=== PATIENT | female | born 1945 | race Caucasian/White ===

== ENCOUNTER 2019-05-04 07:07 | Inpatient (IN) | payer MEDICARE, OTHER ==
[2019-05-04] VITALS (9 sets, daily range): BP systolic 88–139; BP diastolic 44–76
[~2019-05-04] VITALS: Ht 152.4 cm; Wt 60.3 kg
[~2019-05-04 07:07] MED LIST: ASPIR 8181 M1 PO; ASPIRIN325 PO; BENAZEPRIL HCL40 MG PO; COLACE100 MG PO; HYDROCODON-ACE1 EAC7 PO; HYDROCODONE-AP1 EAC6 PO; LOVASTATIN 20 M20 MG PO; METOPROLOL SUC200 MG PO; MICROZIDE12.5 MG PO; NORVASC5 MG PO; TRAMADOL 50 MG50 MG PO; XARELTO10 MG PO
[2019-05-04 07:51] LABS: ABSOLUTE LYMPHOCYTES 1.1 thou/uL (0.8-5.3); ABSOLUTE MONOCYTES 0.6 thou/uL (0.0-1.2); ABSOLUTE NEUTROPHILS 6.5 thou/uL (1.6-8.1); BASOPHILS 0.3 %; EOSINOPHILS 0.4 %; HEMOGLOBIN 14.8 gm/dL (12.0-15.0); LYMPHOCYTES 13.5 %; MCH 30.8 pg (26.0-34.0); MCHC 33.6 g/dL (28.0-37.0); MCV 91.7 fL (80.0-100.0); MONOCYTES 7.5 %; MPV 11.1 fl. (7.2-11.1); NUCLEATED RBCS 0 /100WBC; PLATELET COUNT* 81 thou/uL (150-400); POLYS 78.3 %; RDW-CV 15.1 % (10.5-14.5); WBC 8.3 thou/uL (4.0-11.0)
[2019-05-04 08:01] LABS: ANION GAP 8 mmol/L (7-16); BUN 16 mg/dL (7-18); CALCIUM 8.8 mg/dL (8.5-10.1); CHLORIDE 102 mmol/L (98-107); CO2 30 mmol/L (21-32); CREATININE 1.1 mg/dL (0.6-1.3); GLUCOSE 103 mg/dL (70-99); POTASSIUM 3.6 mmol/L (3.5-5.1); SODIUM 140 mmol/L (136-145)
[2019-05-04 08:11] LABS: ALKALINE PHOSPHATASE 162 U/L (46-116); LIPASE 106 U/L (73-393); MAGNESIUM 1.7 mg/dL (1.8-2.4); NT-PRO BRAIN NAT PEPTIDE 785 pg/mL (<300); SGOT 113 U/L (15-37); SGPT 81 U/L (30-65); TOTAL BILIRUBIN 1.1 mg/dL (<0.1-1.0); TOTAL PROTEIN 6.8 g/dL (6.4-8.2); TROPONIN-I LEVEL <0.06 ng/mL (<0.06)
--- NOTE | 2019-05-04 10:55 | EKG ---
[place] [address] ELECTROCARDIOGRAM REPORT Name: CONSUELO ZAPIEN Room: [address] ADM IN M.R.#: [id number] Admission: 05/04/19 Attend Phys: Raffy Kahn, Discharge: Date of : 47 Report #: [id number] THIS REPORT FOR: //name// [facility] ED Test Date: 2019-05-04 Test Time: 07:12:12 Pat Name: CONSUELO ZAPIEN Department: Room: [facility] Gender: F [employer] Consultant[place] [facility] 1945 Requested By: Ruperto Joel Order Number: [id number] MD: Jake Parker Measurements Intervals [place] Rate: 84 P: 79 MD: 160 QRS: 52 QRSD: 105 T: 261 QT: 341 QTc: 404 Interpretive Statements Sinus rhythm Borderline repolarization abnormality Cannot rule out inferior infarct, old Compared to ECG 08/27/2016 09:14:01 Left bundle-branch block no longer present Electronically Signed On 05-04-2019 10:55:33 CDT by Jake Parker [email or web address] <ELECTRONICALLY SIGNED> By: Jake Parker MD, FACC 05/04/19 1055 1 1 Jake Parker MD, FAC /EPI
--- NOTE | 2019-05-04 13:02 | NUR ---
VSS, ASSUMED CARE OF PT FROM ER, ASSESSMENT PERFORMED AND CHARTED, FALL PRECAUTIONS IN PLACE AND CALL LIGHT IN REACH, PT IS A&O4 AND UP AD TYLER, PT IS ON RA AND DENIES ANY PAIN, PT IS TRACING SB/SR ON THE MONITOR, PT WILL HAVE CATH TODAY, WILL FOLLOW WITH PLAN OF CARE.
[2019-05-04 13:23] LABS: CHOLESTEROL 115 mg/dL (<200); HDL CHOLESTEROL 27 mg/dL (>40); LDL CHOLESTEROL 65 mg/dL (<100); TC:HDL 4.3 Ratio (Not establshd); TRIGLYCERIDE 118 mg/dL (<150); VLDL 24 mg/dL (<40)
[2019-05-04 13:28] LABS: SERUM ASSESSMENT Clear
--- NOTE | 2019-05-04 14:16 | NUR ---
EMOTIONAL REASSUREANCE PROVIDED WITH PERIPHERAL IV START. PATIENT VERBALIZED UNDERSTANDING AND EXPRESSED "THANK YOU" AT THE CLOSE OF INTERVENTION. ARIANA OF ADMINISTRATION PRESENT FOR SERVICE RECOVERY.
[2019-05-04 14:49] LABS: CREATININE 0.9 mg/dL (0.6-1.3); MAGNESIUM 1.8 mg/dL (1.8-2.4); POTASSIUM 3.4 mmol/L (3.5-5.1)
--- NOTE | 2019-05-04 18:57 | NUR ---
ASSUMED PT CARE AT 1500, GET REPORT FROM FIORELLA CRISTINA. PT HAD HEART CATH. R [facility] SITE C/D/I. VSS, HOURLY ROUNDING, CALL LIGHT WITHIN REACH. WILL CONTINUE TO MONITOR
[2019-05-05 04:00] VITALS: BP 103/52
[2019-05-05 04:31] LABS: ALBUMIN 2.6 g/dL (3.4-5.0); CALCIUM 8.4 mg/dL (8.5-10.1); CREATININE 0.9 mg/dL (0.6-1.3); POTASSIUM 3.4 mmol/L (3.5-5.1); TOTAL BILIRUBIN 0.9 mg/dL (<0.1-1.0); TOTAL PROTEIN 5.7 g/dL (6.4-8.2)
--- NOTE | 2019-05-05 06:44 | NUR ---
Patient progressing towards goals: vss on room air. Right groin site without hematoma, minimal bruising. dressing c/d/i. Denies chest pain and discomfort this shift. Anticipating discharge home today. Call light within reach
[2019-05-05 08:00] VITALS: BP 116/58
--- NOTE | 2019-05-05 10:50 | NUR ---
ASSUMED PT CARE AT O800, AOX4, UP AD TYLER, O2 SAT 90'S RA. TRACING SR, 1ST DEGREE ON MONITOR. DENIES PAIN. CATH SITE C/D/I. VSS, AM ASSESSMENT CHARTED. MEDS GIVEN PER MAR, HOURLY ROUNDING. WILL CONTINUE TO MONITOR.
[2019-05-05 11:07] VITALS: BP 116/58
--- NOTE | 2019-05-05 11:30 | NUR ---
ATTEMPTED TO MEET WITH PT. SHE REFUSED STATING SHE HAD ALREADY GIVEN THE INFO CM WAS ASKING TO SOMEONE ELSE. WANTED TO KNOW WHERE DR WAS AND WANTING TO GO HOME. REASSURED HER CM WOULD ASK NURSE TO CONTACT HER DR.
--- NOTE | 2019-05-05 11:53 | EKG ---
[place] [address] ELECTROCARDIOGRAM REPORT Name: CONSUELO ZAPIEN Room: [address] ADM IN M.R.#: [id number] Admission: 05/04/19 Attend Phys: Raffy Kahn, Discharge: Date of : 47 Report #: [id number] THIS REPORT FOR: //name// [facility] Test Date: 2019-05-05 Test Time: 08:18:57 Pat Name: CONSUELO ZAPIEN Department: Room: [address] Gender: F Elevator Service Technician: : 1945 Requested By: Jake Parker Order Number: [id number] MD: Ayaz Woods Measurements Intervals [place] Rate: 63 P: 49 IN: 169 QRS: 40 QRSD: 110 T: 259 QT: 436 QTc: 447 Interpretive Statements Sinus rhythm Inferoposterior infarct, recent Abnormal T, consider ischemia, anterior leads Lateral leads are also involved Compared to ECG 05/04/2019 07:12:12 T-wave abnormality now present Possible ischemia now present Myocardial infarct finding still present Electronically Signed On 05-05-2019 11:53:18 CDT by Ayaz Woods [email or web address] <ELECTRONICALLY SIGNED> By: Ayaz Woods MD, [facility] 05/05/19 1153 7 Ayaz Woods MD, [facility] /EPI
[2019-05-05 12:45] VITALS: BP 107/60
[2019-05-05 12:47] LABS: HEMATOCRIT 38.4 % (37.0-47.0); HEMOGLOBIN 12.8 gm/dL (12.0-15.0); MCH 30.7 pg (26.0-34.0); MCHC 33.3 g/dL (28.0-37.0); MPV 12.3 fl. (7.2-11.1); NUCLEATED RBCS 0 /100WBC; PLATELET COUNT* 74 thou/uL (150-400); RBC 4.17 mil/uL (4.20-5.00); RDW-CV 14.9 % (10.5-14.5); WBC 7.5 thou/uL (4.0-11.0)
[2019-05-05 13:19] LABS: ABSOLUTE LYMPHOCYTES 0.6 thou/uL (0.8-5.3); ABSOLUTE MONOCYTES 0.1 thou/uL (0.0-1.2); ABSOLUTE NEUTROPHILS 6.8 thou/uL (1.6-8.1)
[2019-05-05 13:23] LABS: ANISOCYTOSIS 1+; PLATELET ESTIMATE DECREASED; POIKILOCYTOSIS 1+
[2019-05-05 16:41] VITALS: BP 120/63
[2019-05-05 19:50] VITALS: BP 170/65
[2019-05-06] VITALS: BP 108/51
[2019-05-06 04:00] VITALS: BP 94/58
[2019-05-06 04:39] LABS: HEMATOCRIT 36.6 % (37.0-47.0); MCH 30.4 pg (26.0-34.0); MCHC 32.9 g/dL (28.0-37.0); MCV 92.4 fL (80.0-100.0); MPV 11.3 fl. (7.2-11.1); RBC 3.96 mil/uL (4.20-5.00); RDW-CV 14.9 % (10.5-14.5); WBC 12.8 thou/uL (4.0-11.0)
[2019-05-06 04:44] LABS: CALCIUM 8.2 mg/dL (8.5-10.1); CREATININE 1.1 mg/dL (0.6-1.3); MAGNESIUM 2.2 mg/dL (1.8-2.4); POTASSIUM 3.5 mmol/L (3.5-5.1)
[2019-05-06 07:20] VITALS: BP 114/58
--- NOTE | 2019-05-06 11:19 | CARD ---
[address] [address] CARDIAC CATH REPORT Name: CONSUELO ZAPIEN Room: [address] IN .R.#: [id number] Admission: 05/04/19 Attend Phys: Raffy Kahn, Discharge: Date of : 47 Report #: [id number] THIS REPORT FOR: //name// APPROVED REPORT Study performed: 05/04/2019 14:34:58 Patient Details The patient is a 73 year-old female Event Personnel Jake Parker Bonsai Culturist, Callie Kuo RN RN, Omar Lund (R) Scrub, Camelia Ulloa RTR Monitor, Fiona Malcolm RTR Scrub, Ayaz Woods Jig Fitter Procedures Performed Art Access - R femoral artery* Left Heart Cath Coronaries, Bypass Grafts [id number] LHCCORCABG DAVINA Place w/wo Plasty Single CIRC [id number] DAVINA Place w/wo Plasty Single LAD [id number] Admission/Lab Medications/Medications given during procedure Midazolam (Versed) IV 2 mg, Fentanyl IV 50 mcg, Lidocaine Subcut 14 ml, Angiomax IV 9 mg per kg, Angiomax Drip IV 21 ml per hr, Benadryl IV 50 mg, Solumedrol IV 125 mg, Midazolam (Versed) IV 1 mg, Fentanyl IV 25 mcg, Fentanyl IV 25 mcg, Effient PO 60 mg, Aspirin PO 162 mg Procedure Narrative A 6fr Ultimum Sheath sheath was inserted into the right femoral artery. Coronary angiography was performed using coronary diagnostic catheters. The right coronary system was accessed and visualized with a 6F JR4 catheter. The left coronary system was accessed and visualized with a 6F JL4 catheter. The left ventricle was accessed and visualized with a PIGTAIL catheter. The patient tolerated the procedure well and there were no complications associated with the procedure. The SVG's were accessed and visualized with a 6F JR4 catheter. Contrast injection to visualize APONTE with a 6F JR4 catheter. Intraoperative Conscious Sedation Sedation start time: 15:30 Case end Time: 16:50 Fentanyl 100 mcg Versed 3 [place] [address] CARDIAC CATH REPORT Name: CONSUELO ZAPIEN Room: [address]#: [id number] Admission: 05/04/19 Attend Phys: Raffy Kahn, Discharge: Date of : 47 Report #: [id number] Fluoro Time: 25.7 minutes Dose: DAP 299265 cGycm2 67.7 mGy Contrast Type and Amount: Visipaque 700 ml Coronary Angiography The patient's coronary anatomy is right dominant. [place] Artery Percent Stenosis A saphenous vein graft to the PDA branch of the right coronary artery is widely patent with good proximal and distal anastomoses. A saphenous vein graft to the obtuse marginal/diagonal region appears to be chronically occluded. A presumed a APONTE graft to the LAD appears to be chronically occluded at the takeoff. Diagnostic Cath Left Main Mildly plaqued left anterior descending coronary artery that bifurcates into the left descending and circumflex coronary arteries. LAD Mildly ectatic proximal vessel with a tubular 80% narrowing in the proximal to mid LAD. The distal vessel is free of significant disease. Diagonal 1 Previous significant disease. Circumflex Mildly plaqued in the proximal portion. The mid and distal vessel are free of significant disease. OM1 Renetta branch with proximal takeoff. Free of significant disease. OM2 90% narrowing proximally. Distal moderate in size and branch. Right Coronary Diffusely ectatic proximal right coronary artery that is occluded at the takeoff of an acute marginal branch. R PDA Moderate-sized vessel filled by a saphenous vein graft is diffusely plaqued without hemodynamically significant. RPLV Faintly filled by retrograde perfusion from the saphenous vein graft to the PDA. Left Ventriculography The left ventricle is normal in size with abnormal contractility. The left ventricular ejection fraction is estimated to be 45-50%. Left ventricular wall motion abnormalities are present. The basal inferior wall appears akinetic. Hemodynamics The aortic pressure is 92/57 mmHg with a mean of 71 mmHg. The left ventricular pressure is 123/2 mmHg with a mean of mmHg. The left ventricular end diastolic pressure is 14 [place] [address] CARDIAC CATH REPORT Name: CONSUELO ZAPIEN [address] [id number] Admission: 05/04/19 Attend Phys: Raffy Kahn, Discharge: Date of : 47 Report #: [id number] PCI Technique Lesion Anticoagulation was achieved with Angiomax. Patient was preloaded with Angiomax IV 9 mg per kg. Percutaneous coronary intervention was performed on the OM2. The lesion stenosis prior to intervention was 90% with ROSENDA 2 flow. A 6F XB LAD 3.5 Guide Catheter was used to engage the ostium. A IG: BMW 190cm Interventional Guidewire was used to cross the lesion. BALLOON DILATION A Balloon catheter Mini Trek RX 2.0 X 8 was inserted and inflated up to 12.00atm for 16seconds. Additional Inflation: 12.00atm for 16seconds. A 2.25/8 NC TREK balloon inserted and inflated to 15 ARIAN for 5 seconds. A 2nd inflation of 15 ARIAN for 19 seconds. STENT DEPLOYMENT A stent [place] RX Stent 2.28G94qk was inserted and inflated up to 10.00atm for 9seconds. Additional Inflation: 10.00atm for 10seconds. Final angiography reveals 0 % stenosis with ROSENDA 3 flow. PCI Technique Lesion 2 Percutaneous Coronary Intervention was performed on the proximal left anterior descending artery segment. Patient was preloaded with Angiomax IV 9 mg per kg. The lesion stenosis prior to intervention was 80% with ROSENDA 3 flow. A 6F XB LAD 3.5 Guide Catheter was used to engage the ostium. A IG: BMW 190cm Interventional Guidewire was used to cross the lesion. Balloon Dilation A Balloon catheter Trek RX 2.5 X 8 was inserted and inflated up to 18.00atm for 26seconds. Additional Inflation: 18.00atm for 13seconds. A 2.75/8 NC TREK balloon was inserted and inflated to 20 ARIAN for 17 seconds. A 3.0/8 NC TREK balloon was inserted and inflated to 16 ARIAN for 8 seconds. A 2nd inflation at 20 ARIAN for 8 seconds. Stent Deployment A stent Xience Elisha [id number] was inserted and inflated up to 12.00atm for 8seconds. Additional Inflation: 16.00atm for 11seconds. Additional Inflation: 17.00atm for 9seconds. Final angiography reveals 10 % stenosis with ROSENDA 3 flow. Conclusion [facility] [address] [place] [address] CARDIAC CATH REPORT Name: CONSUELO ZAPIEN Room: [address] IN M.R.#: [id number] Admission: 05/04/19 Attend Phys: Raffy Kahn, Discharge: Date of : 47 Report #: [id number] 1. Severe three-vessel disease as outlined above. 2. Mildly decreased left particular systolic function with wall motion abnormalities as outlined above. 3. Moderately elevated left ventricular end-diastolic pressure. 4. Patent saphenous vein graft to the right coronary artery. 5. Occluded saphenous vein graft to the obtuse/diagonal territory. 6. Occluded APONTE graft to the LAD. 7. successful PCI with de[ployment of a DAVINA in OM2 with 0% residual narrowing 8.successfu PCI with deployment of a DAVINA in the proximal LAD with 10 % resiual narrowing Recommendations Cardiac Risk Reduction Program 1. Continue aggressive risk factor modification. 2. Consider percutaneous coronary intervention to the second obtuse marginal and proximal to mid left descending coronary arteries. Medications Administered Aspirin (any) Prasugrel Diagnostic Cath Approved by: Jake Parker MD Date/Time: 05/06/2019 11:18:28 <ELECTRONICALLY SIGNED> By: Ayaz Woods MD, [facility] 05/06/19 1119 1119 1119Jobryn Woods MD, FACC /INF
--- NOTE | 2019-05-06 11:19 | CON ---
[address] [address] CONSULTATION Name: CONSUELO ZAPIEN Room: [address] IN ..#: [id number] Admission: 05/04/19 Attend Phys: Raffy Kahn, Discharge: Date of : 47 Report #: [id number] THIS REPORT FOR: //name// CC: Aleja Kahn DATE OF SERVICE: 05/05/2019 REASON FOR CONSULTATION: Thrombocytopenia and lung mass. SUBJECTIVE: A 73-year-old female who has been having nonpleuritic, nonradiating chest pain, dull, but heavy in description. The patient had a cardiac workup. EKG showed minimal ST depression and she underwent a heart catheterization. The patient received Angiomax during her procedure. Platelet count dropped from 81-74 and prior to that back in 08/2016, platelet count was 106. I reviewed her workup and today this afternoon, she had a CT scan of the chest showed large spiculated right upper lobe mass with a right pleural effusion consistent with a primary lung cancer. 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 No active leak, persistent nephrogram with a prior coronary artery. REVIEW OF SYSTEMS: All systems reviewed. It was negative including 30 pounds weight loss in the last year. MEDICATIONS: Per admission list. ALLERGIES: PENICILLIN AND ADHESIVE TAPE. PAST MEDICAL HISTORY: Coronary artery disease status post bypass, hypertension, and dyslipidemia. PAST SURGICAL HISTORY: Back surgery, CABG, hysterectomy, cholecystectomy, tonsillectomy, right hip replacement. SOCIAL HISTORY: No alcohol or drug abuse. However, she has been an active smoker for her entire life more than 50 years, she has had around 1-2 cigarettes. PHYSICAL EXAMINATION: VITAL SIGNS: Today, temperature 36.5, respirations 16, pulse 66, blood pressure is 120/63, saturations 96% on room air. GENERAL: The patient was lying in bed, she was not in acute distress. LUNGS: Clear to auscultation bilaterally. HEART: Regular rate and rhythm. S1, S2 within normal limits. ABDOMEN: Soft, nontender, nondistended, bowel [place] [address] CONSULTATION Name: CONSUELO ZAPIEN Room: [address] IN [facility]#: [id number] Admission: 05/04/19 Attend Phys: Raffy Kahn, Discharge: Date of : 47 Report #: [id number] EXTREMITIES: No edema, no cyanosis, no clubbing. LABORATORY DATA: Today, WBC is 7.5, hemoglobin 12.8 and platelets 74. Sodium is 139, potassium 3.4, creatinine 0.9, bilirubin is 0.8, AST 48, ALT is 64, alkaline phosphatase 127. IMAGING: As mentioned above. 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 However, incidental findings of CT scan of the chest showed right upper lobe mass with liver metastases. This is a challenging case because the patient just had a cardiac catheterization on and we will need to obtain a biopsy and she is going to be at high risk with her current anticoagulation. At the same time, I would like to obtain abdominal and pelvic CT scan, brain MRI for continuous evaluation. We will need to discuss with a Cardiology when biopsy is feasible by holding the anticoagulant. <ELECTRONICALLY SIGNED> By: Julian Prince MD 05/06/19 1119 1722 [id number] Prince MD /nt
[2019-05-06] MEDS ORDERED: DECADRON4 MG PO ×2 (14:36→14:37)
[2019-05-06] MEDS ORDERED: EFFIENT10 MG PO (14:38)
[2019-05-06 14:48] VITALS: BP 116/58
[2019-05-06 15:05] VITALS: BP 116/58
--- NOTE | 2019-05-08 10:17 | CON ---
[address] [address] CONSULTATION Name: CONSUELO ZAPIEN Room: [address] IN M.R.#: [id number] Admission: 05/04/19 Attend Phys: Raffy Kahn, Discharge: 05/06/19 Date of : 47 Report #: [id number] THIS REPORT FOR: //name// CC: Aleja Kahn REASON FOR CONSULTATION: Lung mass. HISTORY OF PRESENT ILLNESS: This is a 73-year-old female patient who was admitted to this facility on the above-mentioned date with chest pain and discomfort. She described it as dull and heavy sensation in the central part of her chest. At one point, she described as heartburn to me. She reported also some episodes of lightheadedness on and off. She was evaluated by Cardiology. She has a background history of coronary artery disease, status post coronary artery bypass graft in 2002. She has a background history of smoking too. There was a concern this is an anginal equivalent as she experienced similar symptoms in the past. She underwent cardiac evaluation. She reports she underwent cardiac catheterization and stent placement. She is currently on aspirin and Effient. Also, she had a platelet dropped afterwards and Oncology was consulted. Part of her workup was a CT chest that demonstrated right lung mass. Also, she had some liver lesions. Oncology was consulted who ordered an MRI. The MRI also showed possible brain mets. She told me she smokes, although she does not have oxygen at home. She does not use any inhalers. She is n.p.o. this morning for ultrasound. PAST MEDICAL HISTORY: Coronary artery disease, status post coronary artery bypass graft as mentioned above, hyperlipidemia, hypertension, lip surgery, blind in the left eye. PAST SURGICAL HISTORY: Triple bypass, back surgery, some reconstruction surgery, hysterectomy, cholecystectomy, tonsillectomy, and right hip surgery. ALLERGIES: PENICILLIN AND ADHESIVES. HOME MEDICATIONS: Aspirin, amlodipine, lovastatin, metoprolol, and hydrochlorothiazide. REVIEW OF SYSTEMS: All systems reviewed with the patient and negatives as mentioned above. PHYSICAL EXAMINATION: VITAL SIGNS: She was on room air with saturation more than 90%, blood pressure 108/51, pulse rate of 69, and temperature 36.5. GENERAL: The patient is lying in bed, awake, alert, [place] [address] CONSULTATION Name: CONSUELO ZAPIEN Emily Room: [address]#: [id number] Admission: 05/04/19 Attend Phys: Raffy Kahn, Discharge: 05/06/19 Date of : 47 Report #: [id number]. HEENT: head is normocephalic, atraumatic. Pupils are reactive to light. External ear looks healthy and normal. Nasal cavity patent passages. Oral cavity, moist mucous membranes. Mallampati of 2. NECK: Full range of movement. CHEST: Diminished air movement bilaterally, but no wheezes, no crackles. No tenderness. HEART: S1, S2. No murmur, no gallop. ABDOMEN: Benign, soft, lax, nontender, positive bowel sounds. No masses felt, no rebound, no rigidity. EXTREMITIES: Lower extremity: No edema, no calf tenderness. NEUROLOGIC: Moving 4 extremities spontaneously. No focal weakness. Cranial nerves grossly normal with an affect slightly anxious. SKIN: No rash. LABORATORY DATA: White blood count 12.8, hemoglobin 12, and platelets ____, potassium 3.5 with a sodium 142, chloride 106, creatinine 1.1. BNP 785. Her MRI of the brain reported as multiple enhancing masses in both cerebral hemispheres. CT chest demonstrated spiculated right upper lobe mass with right pleural effusion suspicious for malignancy and multiple hepatic metastases on both lower lobes. IMPRESSION: 1. Lung mass. 2. Liver lesions suspicious for metastasis. 3. Abnormal MRI of the brain with possible metastasis. 4. Coronary artery disease, status post coronary artery bypass graft. 5. Status post stent. The patient with lung mass with possible metastasis to the liver and the brain, difficult situation. She is on Effient and aspirin. The record indicated that she had recent catheterization, I am still waiting for the official reports and she is currently on Effient and aspirin. She will need a biopsy to confirm the diagnosis. Oncology on the case, likely liver biopsy will be the easiest approach; however, we are waiting for further input from Cardiology regarding holding anticoagulation. She is in no respiratory distress. I do not think she needs steroids at this point, can consider DuoNeb p.r.n. Discussed with the patient. Thank you for the consult. <ELECTRONICALLY SIGNED> By: Deedee Hong MD 05/08/19 1017 0751 [id number] Hong MD /nt
== END 2019-05-06 16:00 | disposition home or self-care (01) | DRG 246 ==
LOC: M.ERS 07:07 → M.TBA-ER 09:00 → M.2W 09:00
PROVIDERS: Emergency Medicine Emergency Medical Services; Internal Medicine Cardiovascular Disease; Registered Nurse; ADMIT Family Medicine
PROC: B211YZZ Fluoroscopy of Multiple Coronary Arteries using Other Contrast (ICD-10-PCS; principal; 2019-05-04)
PROC: B213YZZ Fluoroscopy of Multiple Coronary Artery Bypass Grafts using Other Contrast (ICD-10-PCS; principal; 2019-05-04)
PROC: 4A023N7 Measurement of Cardiac Sampling and Pressure, Left Heart, Percutaneous Approach (ICD-10-PCS; principal; 2019-05-04)
PROC: 027135Z Dilation of Coronary Artery, Two Arteries with Two Drug-eluting Intraluminal Devices, Percutaneous Approach (ICD-10-PCS; principal; 2019-05-04)
PROC: B215YZZ Fluoroscopy of Left Heart using Other Contrast (ICD-10-PCS; principal; 2019-05-04)
PROC: B218YZZ Fluoroscopy of Left Internal Mammary Bypass Graft using Other Contrast (ICD-10-PCS; principal; 2019-05-04)
DX: I25.810 Atherosclerosis of coronary artery bypass graft(s) without angina pectoris (principal); E43 Unspecified severe protein-calorie malnutrition; E78.5 Hyperlipidemia, unspecified; I10 Essential (primary) hypertension; H54.40 Blindness, one eye, unspecified eye; D69.6 Thrombocytopenia, unspecified; R91.8 Other nonspecific abnormal finding of lung field; K76.9 Liver disease, unspecified; F17.210 Nicotine dependence, cigarettes, uncomplicated; Z96.641 Presence of right artificial hip joint; Z95.1 Presence of aortocoronary bypass graft; I71.9 Aortic aneurysm of unspecified site, without rupture; Z90.49 Acquired absence of other specified parts of digestive tract; Z90.710 Acquired absence of both cervix and uterus; Z68.26 Body mass index [BMI] 26.0-26.9, adult; Z79.82 Long term (current) use of aspirin; Z79.899 Other long term (current) drug therapy; Z88.0 Allergy status to penicillin; Z88.8 Allergy status to other drugs, medicaments and biological substances; Z82.49 Family history of ischemic heart disease and other diseases of the circulatory system; Z82.5 Family history of asthma and other chronic lower respiratory diseases; Z71.6 Tobacco abuse counseling

== ENCOUNTER 2019-05-11 09:18 | Inpatient (IN) | payer MEDICARE, OTHER ==
[~2019-05-11] VITALS: Ht 152.4 cm; Wt 61.8 kg
--- NOTE | ~2019-05-11 | CON ---
[address] [address] CONSULTATION Name: CURRYCONSUELO K Room: [address] IN M.R.#: [id number] Admission: 05/11/19 Attend Phys: La Rico Discharge: Date of : 47 Report #: [id number] THIS REPORT FOR: //name// CC: Aleja Flowers DATE OF SERVICE: 05/20/2019 NEPHROLOGY CONSULTATION CONSULTING PHYSICIAN: Dr. Pennington. REASON FOR NEPHROLOGY CONSULTATION: Hypernatremia. REASON FOR ADMISSION: Altered mental status and left leg swelling. HISTORY OF PRESENT ILLNESS: This is a 73-year-old female who was admitted on 05/11 with confusion and altered mental status. She has a history of recently diagnosed lung mass in her right lung with liver metastasis as well as brain metastasis. This was discovered after she developed thrombocytopenia after cardiac stenting. The patient was diagnosed with left leg DVT during this hospital admission, and because of her liver dysfunction, she was not considered a candidate for anticoagulation and underwent IVC filter placement also yesterday. She has been very lethargic, has not been eating or drinking and her sodium has gone up from 148 yesterday morning to 159 today and hence Nephrology has been consulted. She is currently not able to give me any review of systems. She also underwent a liver biopsy yesterday. Oncology has been following her. Plan is to do a whole brain radiation as per Oncology. REVIEW OF SYSTEMS: I cannot obtain from the patient because of her mental status. ALLERGIES: PENICILLIN, ADHESIVE AND LATEX. PAST MEDICAL HISTORY: Includes history of coronary artery disease, status post cardiac stent, left leg DVT, brain metastasis, left lung spiculated mass, liver metastasis, hypertension, and hyperlipidemia. 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 HOME MEDICATIONS: Include lovastatin, dexamethasone, prasugrel, aspirin, amlodipine, hydrochlorothiazide, metoprolol, benazepril. FAMILY HISTORY: [place] [address] CONSULTATION Name: CONSUELO ZAPIEN Emily Room: [address] IN [facility]#: [id number] Admission: 05/11/19 Attend Phys: La Rico Discharge: Date of : 47 Report #: [id number] SOCIAL HISTORY: She lives at home. No history of alcohol or drug abuse, but she smokes about 5 cigarettes a day. PHYSICAL EXAMINATION: VITAL SIGNS: Blood pressure is 114/62, her respiratory rate is 18, her pulse rate is 102, her temperature is 37, and her pulse ox on 3 liters of oxygen is 95%. GENERAL: She is sleeping and she was not really arousable for me, barely arousable, would not answer questions, would just mumble. HEAD, EYES, EARS, NOSE, AND THROAT: Nice. Atraumatic, normocephalic and normal conjunctivae. Mucous membranes are dry. NECK: There is no JVD. CHEST: Bilaterally diminished breath sounds anteriorly. No crackles or wheezing. CARDIOVASCULAR: S1, S2 normal. No murmurs. ABDOMEN: Soft, nondistended, nontender and bowel sounds are diminished. EXTREMITIES: There is no edema. NEUROLOGICAL FUNCTION: She is currently quite drowsy. PSYCHIATRIC: Cannot assess right now because of her drowsiness. LABORATORY DATA: Hemoglobin is 8.3. Sodium is 159, creatinine is 1.1. Her platelet count was 41. Her potassium was 3.5 and other labs were reviewed. IMAGING: Various imaging studies were reviewed. ASSESSMENT: 1. Hypernatremia because of intravascular volume depletion. 2. Left lower extremity deep venous thrombosis, status post inferior vena cava filter, 05/19/2019. 3. Right upper lobe spiculated lung mass with brain mets and liver mets and status post liver biopsy, which was done on 05/19/2019. 4. Transaminitis, which is slowly getting better. Primary team and Oncology is managing that. 5. Thrombocytopenia. She is getting intermittent platelet transfusions as per Oncology. 6. Altered mental status, currently due to her brain mets and also hypernatremia at this point. 7. Urinary retention. She has a Flowers catheter and has been having good urine output. 8. Constipation. PLAN: Agree with increasing D5 water to 100 mL an hour, we will check her sodium every 5 hours at least 2 times today to make sure it is coming down and goal sodium reduction to be around 150 [place] [address] CONSULTATION Name: CONSUELO ZAPIEN Emily Room: [address] IN [facility]#: [id number] Admission: 05/11/19 Attend Phys: Ventura F. Sudholt, D Discharge: Date of : 47 Report #: [id number] This was discussed with the patient's nurse. Avoid nephrotoxic agents. Thank you for this consultation. We will continue to follow with you. By: [id number] Middleton MD /zen
[~2019-05-11 09:18] MED LIST changes: +DECADRON4 MG PO; +EFFIENT10 MG PO
[2019-05-11 09:19] VITALS: BP 132/70
[2019-05-11 10:14] LABS: ABSOLUTE BASOPHILS 0.1 thou/uL (0.0-0.2); ABSOLUTE LYMPHOCYTES 2.3 thou/uL (0.8-5.3); ABSOLUTE MONOCYTES 1.7 thou/uL (0.0-1.2); ABSOLUTE NEUTROPHILS 14.3 thou/uL (1.6-8.1); BASOPHILS 0.6 %; HEMATOCRIT 43.6 % (37.0-47.0); HEMOGLOBIN 14.3 gm/dL (12.0-15.0); LYMPHOCYTES 12.3 %; MCH 31.3 pg (26.0-34.0); MCHC 32.8 g/dL (28.0-37.0); MCV 95.4 fL (80.0-100.0); MONOCYTES 9.2 %; MPV 11.6 fl. (7.2-11.1); NUCLEATED RBCS 0 /100WBC; PLATELET COUNT* 62 thou/uL (150-400); POLYS 77.9 %; RBC 4.57 mil/uL (4.20-5.00); RDW-CV 17.5 % (10.5-14.5); WBC 18.4 thou/uL (4.0-11.0)
[2019-05-11 10:14] LABS: URINE BILIRUBIN NEGATIVE (Negative); URINE BLOOD NEGATIVE (Negative); URINE CLARITY CLEAR; URINE COLOR YELLOW; URINE GLUCOSE-RANDOM NEGATIVE (Negative); URINE KETONES NEGATIVE (Negative); URINE LEUKOCYTES-REFLEX 1+ (Negative); URINE NITRITE-REFLEX NEGATIVE (Negative); URINE PROTEIN NEGATIVE (Negative); URINE SPECIFIC GRAVITY <= 1.005 (1.005-1.030)
[2019-05-11 10:19] LABS: CALCIUM 9.2 mg/dL (8.5-10.1); CREATININE 1.3 mg/dL (0.6-1.3)
[2019-05-11 10:23] LABS: BACTERIA-REFLEX 1-9 Few /HPF (None Seen); CASTS None Seen /LPF (None Seen); CRYSTALS None Seen /LPF (None Seen); MUCUS 0-3 Light strn/LPF (None Seen); SQUAMOUS 0-3 Few /LPF (0-3); URINE RBC 0-2 Rare /HPF (0-2); URINE WBC-REFLEX 6-15 Few /HPF (0-5)
[2019-05-11 10:28] LABS: INR 1.5; PROTIME 15.5 Seconds (9.20-11.50)
[2019-05-11 10:30] LABS: ALBUMIN 3.1 g/dL (3.4-5.0); TOTAL BILIRUBIN 2.1 mg/dL (<0.1-1.0); TOTAL PROTEIN 6.2 g/dL (6.4-8.2); TROPONIN-I LEVEL 0.28 ng/mL (<0.06)
[2019-05-11 11:54] VITALS: BP 121/70
--- NOTE | 2019-05-11 13:00 | NUR ---
INITAL ASSESSMENT COMPLETED CHARTED. VSS. PT IS ALERT & ORIENTED X2-3 WITH SOME FORGETFULNESS. PT DENIES PAIN, CP, SOA, N/V/D. PT AND FAMILY ORIENTED TO UNIT AND ROOM. HOURLY ROUNDING AND FALL PRECAUTIONS IN PLACE. CLWR.
[2019-05-11] MEDS ORDERED: BENAZEPRIL HCL40 MG PO (13:36)
[2019-05-11] MEDS ORDERED: FISH OIL 1,001000 M2 PO (13:37)
--- NOTE | 2019-05-11 15:00 | EKG ---
[place] [address] ELECTROCARDIOGRAM REPORT Name: CONSUELO ZAPIEN Room: [address] ADM IN .R.#: [id number] Admission: 05/11/19 Attend Phys: La Rico Discharge: Date of : 47 Report #: [id number] THIS REPORT FOR: //name// [facility] ED Test Date: 2019-05-11 Test Time: 09:37:11 Pat Name: CONSUELO ZAPIEN Department: Room: [facility] Gender: F Final Inspector Shuttle: DEVON : 1945 Requested By: Calvin Terry Order Number: [id number] MD: Angel Vickers Measurements Intervals [place] Rate: 80 P: 74 SD: 148 QRS: 45 QRSD: 102 T: 249 QT: 341 QTc: 394 Interpretive Statements Sinus rhythm Probable left atrial enlargement Nonspecific repol abnormality, diffuse leads Compared to ECG 05/05/2019 08:18:57 no change Electronically Signed On 05-11-2019 15:00:17 CDT by Angel Vickers [email or web address] <ELECTRONICALLY SIGNED> By: Angel Vickers MD, [facility] 05/11/19 1500 0937 0937 Angel Vickers MD, [facility] /EPI
[2019-05-11 16:00] VITALS: BP 112/69
[2019-05-11 20:00] VITALS: BP 104/66
[2019-05-12] VITALS (7 sets, daily range): BP systolic 113–133; BP diastolic 55–72
--- NOTE | 2019-05-12 03:31 | NUR ---
ASSUMED PT CARE AT 1930. ASSESSMENT COMPLETED CHARTED. ABLE TO MAKE NEEDS KNOWN. UP MULTIPLE TIMES DURING THE NIGHT TO USE BSC. NO C/O PAIN OR DISCOMFORT. STATED SHE WAS NAUSEOUS AT BEGINNING OF SHIFT THEN THAT WENT AWAY. ALSO STATED SHE DIDNT FEEL GOOD BUT COULDNT PINPOINT WHY. PT RESTING IN BED AT THIS TIME. WILL CONTINUE TO MONITOR.
--- NOTE | 2019-05-12 09:00 | NUR ---
INITAL ASSESSMENT COMPLETED CHARTED. VSS. IVF INFUSING ORDERED. TRACING SR WITH 1ST DEGREE BLOCK/ AFIB AT TIMES. PT DENIES PAIN BUT STATES SHE "JUST DOESNT FEEL GOOD". PT HAS POOR APPETITE THIS MORNING. HOURLY ROUNDING AND FALL PRECAUTIONS IN PLACE FOR PT SAFETY. FAMILY AT BEDSIDE. CLWR.
--- NOTE | 2019-05-12 13:42 | NUR ---
SW called pt mlr Nena and completed initial assessment, introduce self, and SW role. Pt has AMS and cognitive challenges. Pt lives at home with , son and grandchildren. Pt is DPOA and pt dtr Nena is alternate agent. Pt family is very supportive. Pt has walker and hx of [facility] a few years ago. SW to continue to follow to assist with safe dc planning.
[2019-05-12 14:20] LABS: MCH 32.4 pg (26.0-34.0); MCHC 33.8 g/dL (28.0-37.0); NUCLEATED RBCS 0 /100WBC; RBC 3.54 mil/uL (4.20-5.00); RDW-CV 17.7 % (10.5-14.5); WBC 9.5 thou/uL (4.0-11.0)
[2019-05-12 14:24] LABS: PLATELET COUNT* 36 thou/uL (150-400)
[2019-05-12 14:31] LABS: HEMOGLOBIN 11.5 gm/dL (12.0-15.0)
[2019-05-12 14:52] LABS: ALBUMIN 2.3 g/dL (3.4-5.0); CREATININE 1.1 mg/dL (0.6-1.3); TOTAL BILIRUBIN 1.6 mg/dL (<0.1-1.0)
[2019-05-12 15:08] LABS: ABSOLUTE LYMPHOCYTES 0.9 thou/uL (0.8-5.3); ABSOLUTE MONOCYTES 0.5 thou/uL (0.0-1.2); ABSOLUTE NEUTROPHILS 8.2 thou/uL (1.6-8.1); PLATELET ESTIMATE DECREASED
[2019-05-12 15:09] LABS: ANISOCYTOSIS 1+
[2019-05-12 15:10] LABS: POLYCHROMASIA 1+
[2019-05-12 21:32] LABS: HEMATOCRIT 30.6 % (37.0-47.0); HEMOGLOBIN 10.2 gm/dL (12.0-15.0); MCHC 33.2 g/dL (28.0-37.0); MCV 96.4 fL (80.0-100.0); MPV 9.9 fl. (7.2-11.1); RBC 3.18 mil/uL (4.20-5.00); RDW-CV 18.5 % (10.5-14.5); WBC 11.2 thou/uL (4.0-11.0)
[2019-05-13] VITALS: BP 116/56
[2019-05-13 04:00] VITALS: BP 138/63
[2019-05-13 07:50] VITALS: BP 137/81
[2019-05-13 11:55] VITALS: BP 143/75
--- NOTE | 2019-05-13 15:30 | NUR ---
ASSESSMENT COMPLETE. PT ALERT AND ORIENTED X4. PT EATING MORE TODAY THAN PREVIOUS DAYS PER PATIENT AND FAMILY. PT DENIES PAIN. PT HAS SCHEDULED ZOFRAN FOR NAUSEA. PT HAS AGRASTAT INFUSING. BRUISING NOTED. PT TURNS SELF IN BED. PT IS UP ONE ASSIST TO BSC. PT IS UP WEAK AND UNSTEADY, BED ALARM IN PLACE. SEE ASSESSMENT AND VITALS FOR OTHER DETAILS. CALL LIGHT WITHIN REACH. WILL CONTINUE PLAN OF CARE
[2019-05-13 16:48] VITALS: BP 110/65
[2019-05-13 20:00] VITALS: BP 114/53
[2019-05-14] VITALS: BP 119/53
[2019-05-14 04:00] VITALS: BP 112/57
--- NOTE | 2019-05-14 05:17 | NUR ---
ASSUMED PT CARE AT 1930. ASSESSMENT COMPLETED CHARTED. ABLE TO MAKE NEEDS KNOWN. UP TO BSC MULTIPLE TIMES DURING THE NIGHT WITH SBA. VSS. NO C/O PAIN OR DISCOMFORT. C/O NAUSEA AT TIMES AND GAVE SCHEDULED ZOFRAN. AGGRASTAT STILL INFUSING IN LEFT WRIST. PT RESTING IN BED AT THIS TIME. CALL LIGHT WITHIN REACH AND FALL PRECAUTIONS IN PLACE. WILL CONTINUE TO MONITIOR.
[2019-05-14 05:28] LABS: HEMATOCRIT 32.9 % (37.0-47.0); HEMOGLOBIN 10.7 gm/dL (12.0-15.0); MCH 31.7 pg (26.0-34.0); MCHC 32.7 g/dL (28.0-37.0); MPV 10.7 fl. (7.2-11.1); RBC 3.39 mil/uL (4.20-5.00); RDW-CV 19.3 % (10.5-14.5); WBC 15.8 thou/uL (4.0-11.0)
[2019-05-14 05:45] LABS: ALBUMIN 2.3 g/dL (3.4-5.0); CALCIUM 8.4 mg/dL (8.5-10.1); CREATININE 1.1 mg/dL (0.6-1.3); TOTAL BILIRUBIN 1.5 mg/dL (<0.1-1.0); TOTAL PROTEIN 5.1 g/dL (6.4-8.2)
[2019-05-14 07:22] VITALS: BP 99/56
[2019-05-14 12:00] VITALS: BP 114/48
[2019-05-14 16:00] VITALS: BP 112/63
--- NOTE | 2019-05-14 18:16 | NUR ---
ASSESSMENT COMPLETE. PT NAUSEATED MOST OF THE DAY. SCOPE PATCH STARTED, BEHIND RIGHT EAR. PT REPORTS IT HAS NOT HELPED TODAY. PT EATING ABOUT 15% OF MEALS. SPOKE WITH ONCOLOGY THIS EVENING AND HE REPORTED HE WILL DISCUSS POSSIBLY STARTING SOMETHING TO HELP WITH APPETITE TOMORROW. FAMILY AT BEDSIDE MOST OF THE DAY. PT IS CHAIR FOR MEALS. PT UP WITH ONE ASSIST TO CHAIR AND BSC. AGRASTAT INFUSING. PT TURNS SELF IN BED. PT IS ON ROOM AIR, VSS. PT IS SR WITH PVC'S. SEE ASSESSMENT AND VITALS FOR OTHER DETAILS. CALL LIGHT WITHIN REACH, WILL CONTINUE PLAN OF CARE
[2019-05-14 20:00] VITALS: BP 110/56
[2019-05-15] VITALS: BP 94/46
[2019-05-15 04:00] VITALS: BP 98/79
[2019-05-15 05:22] LABS: HEMATOCRIT 33.4 % (37.0-47.0); HEMOGLOBIN 10.8 gm/dL (12.0-15.0); MCH 32.1 pg (26.0-34.0); MCHC 32.4 g/dL (28.0-37.0); MCV 99.2 fL (80.0-100.0); MPV 10.9 fl. (7.2-11.1); RBC 3.36 mil/uL (4.20-5.00); RDW-CV 21.3 % (10.5-14.5); WBC 20.3 thou/uL (4.0-11.0)
[2019-05-15 05:36] LABS: ALBUMIN 2.3 g/dL (3.4-5.0); CALCIUM 8.8 mg/dL (8.5-10.1); CREATININE 1.2 mg/dL (0.6-1.3); MAGNESIUM 2.1 mg/dL (1.8-2.4); POTASSIUM 4.3 mmol/L (3.5-5.1); TOTAL BILIRUBIN 2.1 mg/dL (<0.1-1.0); TOTAL PROTEIN 5.1 g/dL (6.4-8.2)
--- NOTE | 2019-05-15 05:37 | NUR ---
ASSUMED PT CARE AT 1930. ASSESSMENT COMPLETED CHARTED. ABLE TO MAKE NEEDS KNOWN. UP WITH SBA TO BSC. NO C/O PAIN OR DISCOMFORT. STILL HAS SOME NAUSEA AND REFUSED A COUPLE DOSES OF ANTI-NAUSEA MEDICATION. VSS. IV FLUIDS RUNNING PER EMAR. CALL LIGHT WITHIN REACH AND FALL PRECAUTIONS IN PLACE. WILL CONTINUE TO MONITOR.
--- NOTE | 2019-05-15 09:11 | CON ---
[address] [address] CONSULTATION Name: CONSUELO ZAPIEN Room: [address] IN .R.#: [id number] Admission: 05/11/19 Attend Phys: La Rico Discharge: Date of : 47 Report #: [id number] THIS REPORT FOR: //name// CC: Aleja Flowers DATE OF SERVICE: 05/12/2019 INPATIENT CONSULTATION DIAGNOSES: Brain, liver and lung metastases; thrombocytopenia. SUBJECTIVE: A 73-year-old female who had cardiac stenting recently with a stent placed, was found to have lung mass with liver metastases and brain metastases. She was seen at the clinic for CT simulation for brain metastases, was readmitted to the hospital yesterday and venous Doppler showed DVT of the left distal femoral vein, popliteal, posterior tibial vein and peroneal veins. The patient was started on a full dose anticoagulation along with Aggrastat. Effient was put on hold, plan for biopsy on Wednesday. I discussed these findings with the patient, also the patient went through AFib overnight. REVIEW OF SYSTEMS: All systems were reviewed. It was negative except the above. All questions have been answered. PAST MEDICAL HISTORY: Coronary artery disease, status post stent, left leg DVT, brain metastases, hypertension and dyslipidemia. MEDICATIONS: Per admission list. ALLERGIES: PENICILLIN AND ADHESIVE TAPE. PAST SURGICAL HISTORY: Total hip replacement, hysterectomy, cholecystectomy and tonsillectomy. SOCIAL HISTORY: The patient has been a smoker for most of her life; however, she reported just less than 5 cigarettes a day. No alcohol or drug abuse. PHYSICAL EXAMINATION: VITAL SIGNS: Her vital signs today, temperature is 36.7, pulse 73, respirations 19, blood pressure is 121/55, SpO2 was 99% on room air. GENERAL: The patient was lying in bed. She was not in acute distress. LUNGS: Decreased breathing sounds bilaterally. HEART: Irregular irregularity. S1, S2 within normal limits. ABDOMEN: The patient had generalized tenderness. EXTREMITIES: +1 edema bilaterally. The patient had tenderness in [place] [address] CONSULTATION Name: CONSUELO ZAPIEN Room: [address] IN [facility]#: [id number] Admission: 05/11/19 Attend Phys: La Rico Discharge: Date of : 47 Report #: [id number] LABORATORY DATA: Today, WBC 9.5, hemoglobin 11.5, platelets are 36. Creatinine is 1.1, total bilirubin is 1.6, AST is 204, alkaline phosphatase is 209. IMAGING: As mentioned above. ASSESSMENT AND PLAN: A 73-year-old female, was diagnosed with lung mass with liver and lung metastases along with recent stent placement in terms of her cancer care. RECOMMENDATIONS: 1. The patient will be bridged with Aggrastat. Effient will be put on hold. Plan for biopsy next Wednesday. Along with that I would like to recommend to obtain a port placement. 2. Brain metastases. The patient had a CT simulation of the brain. She will start whole brain radiation as soon as possible once she is discharged from the hospital. 3. Thrombocytopenia. The patient had mild thrombocytopenia in her prior admission, felt to be due to Effient; however, yesterday it was 62, today dropped to 36 along with her hemoglobin and WBC count, could be related to dilutional effect. However, with current anticoagulation and antiplatelet treatment, I would like to keep her platelet count above 50. We will transfuse her platelet count to minimize the amount of bleeding, especially with her liver and brain metastases. In general, this is a complicated condition and per the discussion with the patient previously, she would like to proceed with all possible treatment. We will monitor the patient closely during hospitalization and I will monitor also her clinical condition during hospitalization. <ELECTRONICALLY SIGNED> By: Julian Prince MD 05/15/19 0911 [id number] Prince MD /nt
[2019-05-15 12:54] VITALS: BP 98/45
--- NOTE | 2019-05-15 14:47 | NUR ---
ASSESSMENT COMPLETE. PT WEAK AND NAUSEATED MOST OF THE DAY. PT ENCOURAGED TO BE IN CHAIR FOR MEALS. PT TOLERATING ENSURE CLEAR. NEW IV STARTED IN LEFT FA WITH NS INFUSING. AGGRASTAT INFUSING IN LEFT HAND. PLATELETS 66 TODAY, ORDER TO TRANSFUSE LOWER THAN 50. DIG LEVEL WNL TODAY. SOFT BP, PROVIDER AWARE. SR ON TELE MONITOR. ULTRASOUND OF RIGHT ARM AND RIGHT LEG COMPLETED THIS AFTERNOON, SEE RESULTS. SEE ASSESSMENT AND VITALS FOR OTHER DETAILS. CALL LIGHT WITHIN REACH, WILL CONTINUE PLAN OF CARE
[2019-05-15 16:08] VITALS: BP 115/68
[2019-05-15 20:00] VITALS: BP 132/77
[2019-05-16 00:23] VITALS: BP 96/39
--- NOTE | 2019-05-16 03:41 | NUR ---
PT NAUSIATED AT TIMES WITHOUT EMESIS. TELEMETRY SHOWS SR PVC. ON RA. AGGRATAT AT 7.5MLS/HR. NS AT 100MLS/HR. DENIES PAIN.
[2019-05-16 04:30] VITALS: BP 129/60
[2019-05-16 05:18] LABS: HEMATOCRIT 31.4 % (37.0-47.0); HEMOGLOBIN 10.2 gm/dL (12.0-15.0); MCH 32.4 pg (26.0-34.0); MCHC 32.5 g/dL (28.0-37.0); MCV 99.9 fL (80.0-100.0); MPV 10.8 fl. (7.2-11.1); RBC 3.14 mil/uL (4.20-5.00)
[2019-05-16 05:36] LABS: ALBUMIN 2.3 g/dL (3.4-5.0); CALCIUM 8.2 mg/dL (8.5-10.1); CREATININE 1.2 mg/dL (0.6-1.3); MAGNESIUM 1.9 mg/dL (1.8-2.4); TOTAL BILIRUBIN 2.6 mg/dL (<0.1-1.0); TOTAL PROTEIN 4.8 g/dL (6.4-8.2)
[2019-05-16 07:05] VITALS: BP 99/50
--- NOTE | 2019-05-16 07:28 | NUR ---
CRITICAL PLATLETS 2500. RESULTS CALLED TO DR FREEMAN. PLATLETS ORDERED. LAB T&S. WAITING FOR PLATLETS.
[2019-05-16 09:27] VITALS: BP 114/58; BP 133/62
[2019-05-16 11:01] LABS: HEMOGLOBIN 8.7 gm/dL (12.0-15.0); MCHC 32.1 g/dL (28.0-37.0); MCV 102.7 fL (80.0-100.0); NUCLEATED RBCS 0 /100WBC; RBC 2.63 mil/uL (4.20-5.00); RDW-CV 22.7 % (10.5-14.5); WBC 17.8 thou/uL (4.0-11.0)
[2019-05-16 11:07] LABS: PLATELET COUNT* 99 thou/uL (150-400)
[2019-05-16 11:51] LABS: ABSOLUTE MONOCYTES 0.4 thou/uL (0.0-1.2); ABSOLUTE NEUTROPHILS 15.5 thou/uL (1.6-8.1); PLATELET ESTIMATE DECREASED
[2019-05-16 11:52] LABS: ANISOCYTOSIS 2+; HYPOCHROMASIA Occasional; MACROCYTES 2+; POIKILOCYTOSIS 1+; POLYCHROMASIA 1+
[2019-05-16 12:19] VITALS: BP 109/46
[2019-05-16 15:08] LABS: HEMATOCRIT 26.9 % (37.0-47.0); HEMOGLOBIN 8.9 gm/dL (12.0-15.0); MCV 100.1 fL (80.0-100.0); RBC 2.69 mil/uL (4.20-5.00); RDW-CV 21.8 % (10.5-14.5); WBC 18.6 thou/uL (4.0-11.0)
[2019-05-16 16:42] VITALS: BP 100/56
[2019-05-17] VITALS (7 sets, daily range): BP systolic 101–122; BP diastolic 43–64
[2019-05-17 04:51] LABS: HEMATOCRIT 28.9 % (37.0-47.0); HEMOGLOBIN 9.4 gm/dL (12.0-15.0); MCH 32.9 pg (26.0-34.0); MCHC 32.4 g/dL (28.0-37.0); MCV 101.6 fL (80.0-100.0); MPV 9.7 fl. (7.2-11.1); RBC 2.85 mil/uL (4.20-5.00); RDW-CV 23.5 % (10.5-14.5)
[2019-05-17 04:56] LABS: APTT 27.5 Seconds (25.0-31.3); INR 1.9
[2019-05-17 06:22] LABS: CALCIUM 8.4 mg/dL (8.5-10.1); MAGNESIUM 1.9 mg/dL (1.8-2.4); POTASSIUM 4.7 mmol/L (3.5-5.1)
--- NOTE | 2019-05-17 09:30 | NUR ---
INITAL ASSESSMENT COMPLETED CHARTED. VSS. PT TRACING SR WITH PVC'S ON MONITOR. PT TRU PAIN, CP, SOA. PT DOES C/O CONSTANT NAUSEA DESPITE SCHEDULED ZOFRAN AND SCOPE PATCH. POOR APPETITE. HOURLY ROUNDING AND FALL PRECAUTIONS IN PLACE FOR PT SAFETY. CLWR.
--- NOTE | 2019-05-17 15:15 | NUR ---
Pt spoke with Pt and in room, plan is for Pt to dc to home, once medically stable with HH, Pt/ do not want skilled. Following.
--- NOTE | 2019-05-17 18:33 | NUR ---
PT PARTIALLY PROGRESSING TOWARDS GOALS. PT DID PARTICIPATE IN PT TODAY. CONTINUES WITH CONSTANT NAUSEA. WILL CONTINUE PLAN OF CARE.
[2019-05-18] VITALS (8 sets, daily range): BP systolic 99–121; BP diastolic 40–89
[2019-05-18 04:29] LABS: HEMATOCRIT 28.9 % (37.0-47.0); HEMOGLOBIN 9.4 gm/dL (12.0-15.0); MCH 33.4 pg (26.0-34.0); MCHC 32.4 g/dL (28.0-37.0); MCV 103.1 fL (80.0-100.0); MPV 10.4 fl. (7.2-11.1); RBC 2.81 mil/uL (4.20-5.00); RDW-CV 25.2 % (10.5-14.5); WBC 16.6 thou/uL (4.0-11.0)
[2019-05-18 05:23] LABS: ALBUMIN 2.2 g/dL (3.4-5.0); CREATININE 1.1 mg/dL (0.6-1.3); POTASSIUM 4.2 mmol/L (3.5-5.1); TOTAL BILIRUBIN 2.8 mg/dL (<0.1-1.0); TOTAL PROTEIN 4.7 g/dL (6.4-8.2)
--- NOTE | 2019-05-18 07:57 | NUR ---
PT IS ABLE TO COMMUNICATE HER NEEDS TO STAFF WITH MINOR DIFFICULTY; SHE IS FORGETFUL AT TIMES. SHE HAS DENIED THE NEED FOR PAIN MEDICATION UP TO THIS TIME.
[2019-05-18 11:49] LABS: PROTIME 20.4 Seconds (9.20-11.50)
[2019-05-18 18:12] LABS: HEMATOCRIT 25.4 % (37.0-47.0); HEMOGLOBIN 8.1 gm/dL (12.0-15.0); MCH 33.2 pg (26.0-34.0); MCHC 31.9 g/dL (28.0-37.0); MCV 104.1 fL (80.0-100.0); MPV 10.5 fl. (7.2-11.1); RBC 2.44 mil/uL (4.20-5.00); WBC 16.2 thou/uL (4.0-11.0)
[2019-05-19] VITALS (7 sets, daily range): BP systolic 104–139; BP diastolic 52–76
[2019-05-19 05:38] LABS: HEMATOCRIT 29.2 % (37.0-47.0); HEMOGLOBIN 9.3 gm/dL (12.0-15.0); MCH 33.6 pg (26.0-34.0); MCHC 31.9 g/dL (28.0-37.0); MCV 105.2 fL (80.0-100.0); RBC 2.77 mil/uL (4.20-5.00); RDW-CV 26.6 % (10.5-14.5); WBC 14.1 thou/uL (4.0-11.0)
[2019-05-19 05:50] LABS: INR 1.7; PROTIME 17.3 Seconds (9.20-11.50)
[2019-05-19 06:02] LABS: ALBUMIN 2.5 g/dL (3.4-5.0); CALCIUM 8.2 mg/dL (8.5-10.1); CREATININE 1.2 mg/dL (0.6-1.3); TOTAL BILIRUBIN 3.2 mg/dL (<0.1-1.0); TOTAL PROTEIN 5.2 g/dL (6.4-8.2)
--- NOTE | 2019-05-19 08:19 | NUR ---
PT IS ABLE TO COMMUNICATE HER NEEDS TO STAFF WITH DIFFICULTY; SHE IS DROWSY, WITHDRAWN, AND CONFUSED (MD IS AWARE). SHE HAS DENIED THE NEED FOR PAIN MEDICATION UP TO THIS TIME. SHE HAS BEEN RESTLESS FOR MOST OF THE NIGHT. FFP UNITS STARTED THIS MORNING PER MD ORDER; TOLERATED WELL UP TO THIS TIME. SHE IS TENTATIVELY SCHEDULED TO HAVE LUNG/LIVER BIOPSY AND A PORT-A-CATH PLACEMENT PROCEDURES LATER THIS MORNING PENDING A FAVORABLE INR LAB RESULT. SHE HAS BEEN NPO SINCE MIDNIGHT FOR THE ABOVE MENTIONED PROCEDURES.
--- NOTE | 2019-05-19 11:15 | NUR ---
ASSUMED PT CARE AT 0730, PT LETHARGIC, AGITATED. O2 SAT 90'S 3L NC. TRACING SR ON TELE. PT RECEIVED 2 BAGS OF FRESH FROZEN PLASMA. VS MONITORED. PT NPO. PT FOR BIOPSY. AM ASSESSMENT CHARTED, HOURLY ROUNDING, CALL LIGHT WITHIN REACH, WILL CONTINUE TO MONITOR.
--- NOTE | 2019-05-19 12:10 | NUR ---
Patient guarding abdomen and upon palpation it is painful to touch and firm. patient's family asked why her abdomen so distended. order received for placement of cain catheter. Latex free cain catheter placed in IR suite [facility]. 1700 judie urine drained. patient abdomen soft and patient much more comfortable.
[2019-05-19 14:54] LABS: INR 1.5; PROTIME 15.5 Seconds (9.20-11.50)
--- NOTE | 2019-05-19 17:45 | NUR ---
ASSUMED CARE AFTER REPORT FROM JONNIE LAWSON. IN AGREEMENT WITH DOCUMENTED ASSESSMENT. VISITORS AT BEDSIDE. PATIENT RESTING. CALL LIGHT IN REACH. HOURLY ROUNDING FOR SAFETY AND PATIENT NEEDS.
[2019-05-19 21:01] LABS: POTASSIUM 3.6 mmol/L (3.5-5.1)
[2019-05-20] VITALS (7 sets, daily range): BP systolic 114–143; BP diastolic 61–77
[2019-05-20 04:34] LABS: HEMATOCRIT 25.7 % (37.0-47.0); HEMOGLOBIN 8.3 gm/dL (12.0-15.0); MCH 34.4 pg (26.0-34.0); MCHC 32.4 g/dL (28.0-37.0); MPV 9.9 fl. (7.2-11.1); RBC 2.43 mil/uL (4.20-5.00); RDW-CV 26.5 % (10.5-14.5); WBC 9.7 thou/uL (4.0-11.0)
[2019-05-20 04:48] LABS: ALBUMIN 2.2 g/dL (3.4-5.0); CALCIUM 8.4 mg/dL (8.5-10.1); CREATININE 1.1 mg/dL (0.6-1.3); MAGNESIUM 2.1 mg/dL (1.8-2.4); POTASSIUM 3.5 mmol/L (3.5-5.1); TOTAL PROTEIN 4.8 g/dL (6.4-8.2)
--- NOTE | 2019-05-20 07:02 | NUR ---
PT HS RESTED THROUGHOUT NIGHT MAINTAING PAIN GOAL AND SSAFETY.AND HAS REMAINED LETHARGIC. PT HAS HAD NO CO PAIN. PAC TO RIGHT SC LA BLOOD AND FLUSHED GOOD. PT PLATELET LAB THIS AM IS 41. CRITICAL LAB CALLED TO PHYSICIAN. CALL LIGHT WITHINREACH
[2019-05-20 10:10] LABS: HEMATOCRIT 27.4 % (37.0-47.0); HEMOGLOBIN 8.8 gm/dL (12.0-15.0); MCH 34.1 pg (26.0-34.0); MCHC 32.2 g/dL (28.0-37.0); MCV 105.8 fL (80.0-100.0); MPV 11.2 fl. (7.2-11.1); RBC 2.59 mil/uL (4.20-5.00); RDW-CV 26.4 % (10.5-14.5); WBC 10.2 thou/uL (4.0-11.0)
[2019-05-20 10:17] LABS: CALCIUM 8.6 mg/dL (8.5-10.1); CREATININE 1.2 mg/dL (0.6-1.3); POTASSIUM 3.5 mmol/L (3.5-5.1)
--- NOTE | 2019-05-20 20:09 | NUR ---
I ASSUMED CARE OF THE PATIENT AT 0700. SHE IS RESPONSIVE AND MUMBLES, BUT IS NOT ALERT OR ORIENTED. BED IS IN THE LOW LOCKED POSITION AND CALL LIGHT IS IN REACH. HOURLY ROUNDING IS COMPLETED AND PATIENT NEEDS ARE MET. PAIN IS DENIED. SHE IS TURNED EVERY 2 HOURS AND ORAL CARE IS COMPLETED. IS AT THE BEDSIDE. D5 IS INFUSING AND SODIUM GOAL IS 150 IN THE AM. WILL CONTINUE TO MONITOR. SAGE IS WORKING D/D. CRITICAL LOW PLATLET COUNT IS GIVEN TO ONCOLOGY. SHE IS VERY LETHARGIC AND HARD TO AROUSE. PORT IS USED AND DRAWS/FLUSHES NICELY.
[2019-05-21] VITALS: BP 109/59
[2019-05-21 04:00] VITALS: BP 120/78
[2019-05-21 05:02] LABS: HEMATOCRIT 27.4 % (37.0-47.0); HEMOGLOBIN 8.5 gm/dL (12.0-15.0); MCH 33.3 pg (26.0-34.0); MCHC 31.1 g/dL (28.0-37.0); MCV 107.1 fL (80.0-100.0); MPV 10.6 fl. (7.2-11.1); RBC 2.56 mil/uL (4.20-5.00); RDW-CV 26.7 % (10.5-14.5); WBC 15.6 thou/uL (4.0-11.0)
[2019-05-21 05:42] LABS: ALBUMIN 2.2 g/dL (3.4-5.0); CALCIUM 8.5 mg/dL (8.5-10.1); CREATININE 1.2 mg/dL (0.6-1.3); MAGNESIUM 2.1 mg/dL (1.8-2.4); POTASSIUM 3.2 mmol/L (3.5-5.1); TOTAL BILIRUBIN 3.4 mg/dL (<0.1-1.0); TOTAL PROTEIN 4.6 g/dL (6.4-8.2)
--- NOTE | 2019-05-21 06:53 | NUR ---
ASSUMED PT CARE AT 1930. ASSESSMENT COMPLETED CHARTED. UNABLE TO MAKE NEEDS KNOWN. Q2TURN COMPLETED CHARTED. CAZARES DRAINING DARK YELLOW URINE. NO APPARENT PAIN OR DISCOMFORT. VERY LATHARGIC, UNABLE TO UNSTAND MOST WORDS SHE SAYS. WILL CONTINUE TO MONITOR.
[2019-05-21 08:00] VITALS: BP 124/68
[2019-05-21 12:00] VITALS: BP 128/74
[2019-05-21 15:45] VITALS: BP 119/75; BP 121/61; BP 128/66
--- NOTE | 2019-05-21 18:03 | NUR ---
[facility] 10. TELE TRACKING SR AND ALL VSS ON 3L. NO OBJECTIVE SIGNS OF PAIN. SERIAL SODIUM DRAWS SLOWLY DECREASING. PLATELETS TRANSFUSED PER ORDERS. MITTENS ON WHILE FAMILY AWAY. CAZARES TO DD WITH DARK OUTPUT. Q2HR TURNS AND ORAL CARE. VERY POOR PO INTAKE. FAMILY EDUCATED ON SAFETY AND PLAN OF CARE. PLEASE SEE ASSESSMENT FOR ADDITIONAL INFORMATION. WILL CONT TO MONITOR
[2019-05-21 19:35] VITALS: BP 109/64
[2019-05-21 20:31] LABS: CALCIUM 8.4 mg/dL (8.5-10.1); CREATININE 1.1 mg/dL (0.6-1.3); POTASSIUM 3.8 mmol/L (3.5-5.1)
[2019-05-22] VITALS (7 sets, daily range): BP systolic 110–138; BP diastolic 39–105
[2019-05-22 00:30] LABS: CALCIUM 8.1 mg/dL (8.5-10.1); MAGNESIUM 1.9 mg/dL (1.8-2.4); POTASSIUM 3.8 mmol/L (3.5-5.1)
[2019-05-22 04:51] LABS: HEMATOCRIT 24.5 % (37.0-47.0); HEMOGLOBIN 7.6 gm/dL (12.0-15.0); MCH 33.2 pg (26.0-34.0); MCHC 30.9 g/dL (28.0-37.0); MCV 107.5 fL (80.0-100.0); MPV 9.4 fl. (7.2-11.1); RBC 2.28 mil/uL (4.20-5.00); RDW-CV 26.2 % (10.5-14.5); WBC 12.9 thou/uL (4.0-11.0)
--- NOTE | 2019-05-22 05:03 | NUR ---
PT SLEEPING THIS SHIFT, AROUSES WITH CARES AND VERBAL STIMULI, MUMBLES. WHEN ASKED IF SHE WAS IN PAIN PT STATES "NO JUST TIRED". MITTENS TO HANDS OVERNIGHT TO KEEP PT FROM PULLING AT LINES. CAZARES DRAINING DK YELLOW URINE. RPAC IVF INFUSING PER PUMP. LABS DRAWN ORDERED-NA TRENDING DOWN. O2 3L NC. LFA SL. TAKING SMALL PILL CRUSHED IN SMALL BITE OF APPLESAUCE AT HS. TELE SR. TURNED AND REPOSITIONED Q2 HOURS AND PRN FOR SKIN CARE AND COMFORT.FULL CODE.
[2019-05-22 12:18] LABS: BE -1.8 mmol/L (-2 to +3); PCO2 28.1 mmHg (35.0-45.0); PO2 85.5 mmHg (75.0-100.0); pH 7.488 (7.340-7.450)
[2019-05-22 12:24] LABS: HEMATOCRIT 28.3 % (37.0-47.0); HEMOGLOBIN 8.6 gm/dL (12.0-15.0); MCH 33.3 pg (26.0-34.0); MCHC 30.3 g/dL (28.0-37.0); MPV 9.5 fl. (7.2-11.1); NUCLEATED RBCS 0 /100WBC; PLATELET COUNT* 58 thou/uL (150-400); RBC 2.57 mil/uL (4.20-5.00); RDW-CV 26.9 % (10.5-14.5); WBC 20.3 thou/uL (4.0-11.0)
[2019-05-22 12:47] LABS: ABSOLUTE LYMPHOCYTES 1.4 thou/uL (0.8-5.3); ABSOLUTE MONOCYTES 0.4 thou/uL (0.0-1.2); ABSOLUTE NEUTROPHILS 18.5 thou/uL (1.6-8.1)
[2019-05-22 12:48] LABS: ANISOCYTOSIS 1+; PLATELET ESTIMATE DECREASED; POIKILOCYTOSIS 1+; POLYCHROMASIA 1+
[2019-05-23] VITALS (7 sets, daily range): BP systolic 94–110; BP diastolic 50–74
[2019-05-23 04:27] LABS: HEMOGLOBIN 8.6 gm/dL (12.0-15.0); MCHC 31.8 g/dL (28.0-37.0); MCV 106.9 fL (80.0-100.0); MPV 9.3 fl. (7.2-11.1); RBC 2.53 mil/uL (4.20-5.00); RDW-CV 25.8 % (10.5-14.5); WBC 15.8 thou/uL (4.0-11.0)
[2019-05-23 04:40] LABS: CALCIUM 8.1 mg/dL (8.5-10.1); CREATININE 0.9 mg/dL (0.6-1.3); MAGNESIUM 1.8 mg/dL (1.8-2.4); POTASSIUM 3.7 mmol/L (3.5-5.1)
--- NOTE | 2019-05-23 04:40 | NUR ---
RECIEVED CRITICAL PLATELET VALUE OF 22. DR SADAF LEON.
--- NOTE | 2019-05-23 10:00 | NUR ---
INITAL ASSESSMENT COMPLETED CHARTED. PT LETHARGIC. VSS. TRACING SR WITH PVC'S ON MONITOR. PT DOES NOT APPEAR TO BE IN PAIN. AT BEDSIDE. MEDS GIVEN PER EMAR. HOURLY ROUNDING AND FALL PRECAUTIONS IN PLACE FOR PT SAFETY. CLWR
[2019-05-23 13:21] LABS: POTASSIUM 4.1 mmol/L (3.5-5.1)
[2019-05-23 16:56] LABS: HEMATOCRIT 25.2 % (37.0-47.0); MCHC 31.6 g/dL (28.0-37.0); MCV 107.5 fL (80.0-100.0); MPV 9.1 fl. (7.2-11.1); RBC 2.35 mil/uL (4.20-5.00); RDW-CV 25.9 % (10.5-14.5); WBC 14.2 thou/uL (4.0-11.0)
[2019-05-24 00:43] VITALS: BP 120/67
[2019-05-24 05:04] VITALS: BP 112/60
[2019-05-24 05:40] LABS: HEMATOCRIT 27.9 % (37.0-47.0); MCH 34.4 pg (26.0-34.0); MCHC 32.4 g/dL (28.0-37.0); MCV 106.4 fL (80.0-100.0); MPV 9.5 fl. (7.2-11.1); RBC 2.62 mil/uL (4.20-5.00); RDW-CV 25.8 % (10.5-14.5); WBC 19.9 thou/uL (4.0-11.0)
[2019-05-24 06:00] LABS: ALBUMIN 2.1 g/dL (3.4-5.0); CALCIUM 8.2 mg/dL (8.5-10.1); MAGNESIUM 1.8 mg/dL (1.8-2.4); POTASSIUM 3.8 mmol/L (3.5-5.1); TOTAL BILIRUBIN 5.9 mg/dL (<0.1-1.0); TOTAL PROTEIN 4.6 g/dL (6.4-8.2)
--- NOTE | 2019-05-24 06:07 | NUR ---
PT SLEPT MOST OF SHIFT. ASSESSMENT DOCUMENTED. MEDS GIVEN PER E-MAR. PORT PATENT, FLUIDS INFUSING. NO APPARENT PAIN. PT REPOSITIONED THROUGH SHIFT. WILL CONTINUE WITH PLAN OF CARE.
[2019-05-24 07:00] VITALS: BP 107/70
--- NOTE | 2019-05-24 11:13 | NUR ---
ORDERS GIVEN FROM DR. FREEMAN FOR PATIENT TO INITIATE PHARMACY TO DOSE TPN. WAS ASKED TO MONITOR ELECTROLYTES, SPECIFICALLY SODIUM SINCE LEVELS HAVE BEEN RAISED DURING THIS ADMISSION. USED PATIENT ACTUAL WEIGHT TO CALCULATE AMOUNT, RATE AND TOTAL VOLUME OF TPN. WILL DO THE FOLLOWING FROM STANDARD TPN WITH A FEW CHANGES: 1) WILL ADD LATEX ALLERGY TO BAG SO BAKER TEST IS AWARE. 2) WILL LOWER SODIUM TO START AND FOLLOW LEVEL DAILY 3) WILL ADD FOLIC ACID AND THIAMINE DUE TO PROLONGED POOR INTAKE. WILL INITIATE RATE AT 40 MLS/HR WITH A GOAL RATE IN PATIENT TO BE STARTED ON DAY 2 AT 65 MLS/HR. PHARMACY WILL CONTINUE TO MONITOR AND ADJUST TPN NEEDED. THANK YOU
[2019-05-24 11:30] VITALS: BP 93/55
--- NOTE | 2019-05-24 12:25 | NUR ---
INITAL ASSESSMENT COMPLETED CHARTED. VSS. TRACING SR ON MONITOR. PT VERY LETHARGIC, REFUSING ANY NUTRITION, ORAL FLUIDS, OR MEDICATIONS. PT BEGAN TO EXHIBIT MOTTLING ON BILATERAL FEET, PHYSICIAN NOTIFIED AND IN TO SEE PATIENT. NEW ORDERS FOR TPN RECEIVED. SPOUSE CURRENTLY AT BEDSIDE. HOURLY ROUNDING AND FALL PRECAUTIONS IN PLACE. CLWR.
[2019-05-24 16:00] VITALS: BP 98/60
--- NOTE | 2019-05-24 22:27 | NUR ---
PATIENT AT 1947. TOD VERIFIED BY THIS RN AND JONNIE HERRON. [facility] CONTACTED AT 1957. PATIENT IS A CANDIDATE FOR [employer]. PATIENT BELONGINGS SENT HOME WITH . CARDIAC RHYTHM SHOWING ASYSTOLE PLACED IN CHART. PHYSICIAN NOTIFIED. FEED MILL OPERATOR NOTIFIED. PATIENT OFF UNIT AT 2208, RELEASED TO [facility].
--- NOTE | 2019-06-01 18:06 | PATH ---
[address] [address] PATHOLOGY RPT PROCEDURE Name: VERONICA ANTOINE Room: [address] IN M.R.#: [id number] Admission: 05/11/19 Date of : 47 Discharge: 05/24/19 Report #: [id number] Path Case #: [id number] LCA Accession Number: [id number] . 01 Material submitted: . liver - LIVER BIOPSY TISSUE . 01 Clinical history: . Lung/liver CA . 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 . (GRETA:deepika; 05/24/2019) S 05/24/2019 0949 Local . 02 Comment: The tumor cells are strongly positive for TTF-1, cytokeratin 7, polyclonal CEA, and cytokeratin AE1/3. No staining is seen in the tumor cells with cytokeratin 20, Hep Par-1, and napsin A. . The immunohistochemical staining pattern of this tumor is consistent with a metastasis from the lung. . The findings in this case were discussed with Dr. Prince on 05/24/2019 at approximately 09:[address] Prince indicated that this patient has a smoking history and a large lung mass which has not been biopsied at this time. . Per Dr. Prince's request, the tumor in block A1 of this case will be tested for PD-L1, ALK, EGFR, ROS-1, and BRAF. The results will be issued in an addendum report. . This case has also been reviewed by Dr. Miranda M.D., who agrees with the diagnosis of malignancy. (SKM:deepika; 05/24/2019) . 02 Addendum: . Special studies report received from [facility], [address] [place] [address], [address], [place], [address], on case [id number], labeled with their number [id number], dated 05/30/2018. . PD-L1 Immunohistochemistry Analysis . Body SIte: Liver (biopsy). Specimen Received: 1 paraffin block labeled "[id number]". [place] [address] PATHOLOGY RPT PROCEDURE Name: VERONICA ANTOINE Room: [address] [facility].#: [id number] Admission: 05/11/19 Date of : 47 Discharge: 05/24/19 Report #: [id number] Path Case #: [id number] . Clinical History Metastatic moderate to poorly-differentiated adenocarcinoma, consistent with metastasis from lung. . Results Table PD-L1 - KEYTRUDA (R) Tumor Proportion Interpretation [id number] <1% No Expression . Reference Ranges PD-L1 protein expression is determined by using the Tumor Proportion Score (TPS), which is the percentage of at least 100 viable tumor cells showing complete or partial membrane staining at any intensity. . TPS less than 1%: No Expression . TPS greater than or equal to 1%: Expression - Eligible for KEYTRUDA (R) (pembrolizumab) monotherapy. . TPS greater than or equal to 50%: High Expression - Eligible for KEYTRUDA (R) (pembrolizumab) monotherapy. . Note: PD-L1 expression level TPS greater than or equal to 50% may be of interest but does not determine eligibility for KEYTRUDA r monotherapy. . . at [employer]. Aries Elena M.D. . . Tests PD-L1 IHC Analysis . Intended Use: PD-L1, 22C3 pharmDx is FDA approved for in vitro diagnostic use as a qualitative immunohistochemical assay using Monoclonal Mouse Anti-PD-L1, Clone 22-C3 intended for use in the detection of PD-L1 in formalin-fixed paraffin-embedded (FFPE) non-small cell lung cancer (NSCLC) using the [employer]ako EnVision FLEX visualization system on [employer] Link 48. PD-L1 22C3 pharmDx is indicated as an aid in identifying NSCLC patients for treatment with KEYTRUDA r (pembrolizumab) monotherapy. See the KEYTRUDA product label for specific clinical circumstances guiding PD-L1 testing. PD-L1, 22C3 pharmDx is a trademark of [employer], an [employer]. . References: Carly TS, Ji YRanda, Kayleigh I, et al: Pembrolizumab versus chemotherapy for previously untreated, CM-T1-nszugzbvxj, locally advanced or metastatic [facility] [address] [facility] [address] PATHOLOGY RPT PROCEDURE Name: VERONICA ANTOINE Room: [address] M.R.#: [id number] Admission: 05/11/19 Date of : 47 Discharge: 05/24/19 Report #: [id number] Path Case #: [id number] xis-poiyo-savm lung cancer (KEYNOTE-042): a randomised, open-label, controlled, phase 3 trial. Lancet 2018December 22; Online(58) 1-12. . Jocy RS, Denisse P, Kianna D-W, et al: Pembrolizumab versus docetaxel for previously treated, QT-V9-gpwfdgbe, advanced qma-xadbc-mlrh lung cancer (KEYNOTE-010): a randomized controlled trial. Lancet 2015 Sep 07; Online(59) 2987-7. . William EB, Sade NA, Mira R, et al: Pembrolizumab for the Treatment of Tyt-Xqkwq-Rlgk Lung Cancer. N Engl J Med 2015 February 07; 372:1129-1686. . Please contact [employer] for additional references. . Disclaimer This Test was performed by [employer] at [address] [place] [address], [address]. [employer] is a business unit of [employer] a wholly-owned subsidiary of [employer]. . . Any image(s) that accompany this report is/are a underwriting sales representative image(s) only and should not be used to render a diagnosis. . This interpretation is contingent on the specimen and the clinical information received. . Known positive cells or tissues are employed with each test and examined to ensure positivity. Positive and negative internal controls, if present, react appropriately. . This analysis is an adjunct to the evaluation of the referring physician and does not represent a final diagnosis. . The immunohistochemistry tests performed at [employer] were validated on tissue fixed in 10% neutral buffered formalin. The performance characteristics of the tests performed on tissue processed in other fixatives is not known. . This assay has not been validated on decalcified tissues. Results should be interpreted with caution if this specimen was decalcified given the likelihood of decreased staining or false negativity on decalcified specimens. . A complete copy of the report is on file. . Professional services performed by [employer] at [address] [facility] [address], [place] [address]. Technical services performed by [employer]. at [address], [facility] [address], [place] [address] PATHOLOGY RPT PROCEDURE Name: VERONICA ANTOINE Room: [address] M.R.#: [id number] Admission: 05/11/19 Date of : 47 Discharge: 05/24/19 Report #: [id number] Path Case #: [id number]. . (AYESHAM:castro 05/30/2019) AZJ/05/30/2019 Addendum Electronically Signed by Pillo Cifuentes MD, Pathologist Addendum #2: Special studies report received from [facility], [address] [place] [address], [address], [place], [address], on case [id number], labeled with their number [id number], dated 05/31/2019. . Fluorescence in situ Hybridization (FISH) Report ALK Analysis . RESULT: No Evidence of ALK Gene Rearrangement Detected by FISH nuc brigido(ALKx3 approximately 4)(23/50) . Specimen Type: Tissue, Liver . Specimen Fixative Type: 10% Neutral Buffered Formalin . Indication for Study: Metastatic Lung Adenocarcinoma . INTERPRETATION: Fluorescence in situ hybridization (FISH) analysis was performed on paraffin embedded tissue using an ALK Break Apart DNA probe (FDA approved kit, [employer]) for the detection of rearrangements involving the ALK gene. . Fifty interphase nuclei were examined and no evidence of ALK specific gene rearrangement was detected. However, 46.0% of cells showed one or more additional fusion signals for the ALK DNA sequence located at 2p; likely representing an aneuploidy population with extra copies of chromosome 2/2p ALK region. . Genetic changes other than those assayed here cannot be ruled out on the basis of this testing. Correlation with clinical and pathological findings is suggested for a complete interpretation of the results. . See FISH report [id number] for further information. See report [id number] for further information. See report [id number] for further information. See Molecular report [id number] for further information. . at [employer]. Tiffanie Lindsey, PhD, FACMG Director of Clinical Cytogenetics . Methodology: FISH was performed using ALK Break Apart FISH Probe Kit (FDA approved, [place] [address] PATHOLOGY RPT PROCEDURE Name: VERONICA ANTOINE Room: [address] M.R.#: [id number] Admission: 05/11/19 Date of : 47 Discharge: 05/24/19 Report #: [id number] Path Case #: [id number] [employer] A minimum of fifty invasive tumor cells were examined from areas that were delineated by a Pathologist from a corresponding H/E slide. A classification of each nucleus as positive or negative is recorded according to senior scheduler's instruction. The results are calculated as a percentage of the total positive cells to total cell analyzed. The normal cutoff was established as 15% using NSCLC FFPE tissue specimen. A negative result is reported when a sample with <15% rearranged cells and a positive result is defined when a sample shown greater than or equal to 15% cells with ALK gene rearrangements. A result is considered uninformative when there are less than 50 invasive tumor cells for FISH analysis. . Intended Use: The ALK Break Apart FISH Probe procedure is a qualitative test to detect rearrangements involving the ALK gene via fluorescence in situ hybridization (FISH) in FFPE NSCLC tissue specimens to aid in identifying those patients eligible for treatment with XALKOR (crizotinib). It is intended for use only on 10% neutral buffered formalin fixed paraffin-embedded NSCLC tissue. The optimal fixation time for tissue is 6-48 hours. The test is for prescription use only. . Disclaimer This Test was performed by [facility] at [address], [address]. [facility] is a business unit of [employer] a wholly-owned subsidiary of [employer]. . This assay has not been validated on decalcified tissues. Results should be interpreted with caution if this specimen was decalcified given the likelihood of false negativity on decalcified specimens. Any image(s) that accompany this report is/are a underwriting sales representative image(s) only and should not be used to render a diagnosis. A complete copy of the report is on file. . Professional services performed by [employer] at [address] [place] [address], [facility] [address], [place] [address]. Technical services performed by [employer] at [address] [place] [address], [facility] [address], [place] [address]. . (AYESHAM:castro 05/31/2019) . . . . . Special studies report received from [facility], [address] [place] [address], on [id number], labeled with their number [id number], dated 05/31/2019. [place] [address] PATHOLOGY RPT PROCEDURE Name: VERONICA ANTOINE Room: [address]#: [id number] Admission: 05/11/19 Date of : 47 Discharge: 05/24/19 Report #: [id number] Path Case #: [id number] . Fluorescence in situ Hybridization (FISH) Report TargetGene Analysis . RESULT: Negative for ROS1 gene rearrangement . Specimen Type: Tissue, Liver . Indication for Study: Metastatic Lung Adenocarcinoma . INTERPRETATION: Fluorescence in situ hybridization (FISH) analysis was performed on this patient's paraffin embedded tissue specimen using a dual color break apart DNA probe for ROS1 gene. . One hundred interphase nuclei were examined and no evidence of a ROS1 gene specific rearrangement (split signal pattern) was detected. However, 45.0% of cells showed one or more additional fusion signals for the ROS1 DNA sequence located at 6q; likely representing an aneuploidy population with extra copies of chromosome 6/6q ROS1 region. . Genetic changes other than those assayed here cannot be ruled out on the basis of this testing. Correlation with clinical and other pathological findings is suggested for a complete interpretation of these results. . See report [id number] for further information. See report [id number] for further information. See report [id number] for further information. See Molecular report [id number] for further information. . The following TargetGene FISH analysis was performed on this patient's specimen: . Probe Detection Parameters Result ISCN ROS1 (6q22) Detects a rearrangement Not Detected nuc brigido(3'ROS1, of the ROS1 gene 5'ROS1)x3 approximately 4 (3'ROS1 con 5'ROS1x3 approximately 4) (45/100) . at [employer] Tiffanie Lindsey, PhD, FACMG Director of Clinical Cytogenetics . Methodology: The patient specimen is processed onto a glass slide. Fluorescent DNA probe(s) is(are) applied to the cells [place] [address] PATHOLOGY RPT PROCEDURE Name: VERONICA ANTOINE Room: [address] ..#: [id number] Admission: 05/11/19 Date of : 47 Discharge: 05/24/19 Report #: [id number] Path Case #: [id number] denaturation followed by hybridization. Stringency washes are applied and the slide is subsequently counterstained. A minimum of 100 interphase nuclei are analyzed unless otherwise indicated above. . References: Chilo Diaz, Thomas OTERO, Bebeto SH, et al. ROS1 rearrangements define a unique molecular class of lung cancers. J Clin Oncol, 2012;30:863-70. . Thomas OTERO, Bebeto Silva-JENNIFER, Vickey Y-J, et al. Crizotinib in ROS1-rearranged cft-yuhwt-xqvi lung cancer. N Engl J Med, 2014;371:1963-71 . Disclaimer This Test was performed by [employer]. at [facility] [address], [place] [address], [place], [address]. . [employer] is a business unit of [employer] a wholly-owned subsidiary of [employer]. . This assay has not been validated on decalcified tissues. Results should be interpreted with caution if this specimen was decalcified given the likelihood of false negativity on decalcified specimens. . Any image(s) that accompany this report is/are a underwriting sales representative image(s) only and should not be used to render a diagnosis. . This test was developed and its performance characteristics determined by [employer] It has not been cleared or approved by the Food and Drug Administration. . A complete copy of the report is on file. . Professional services performed by [employer] at [address], [place] [address]. Technical services performed by [employer]. at [address], [place] [address]. . (SKM:castro 05/31/2019) . AZJ/05/31/2019 Addendum Electronically Signed by Pillo Cifuentes MD, Pathologist Addendum #3: Special studies report received from [address], [address], [place], [address], on case [id number], labeled with their number [id number], dated 06/01/2019. . EGFR Gene Mutation Analysis . INTERPRETATION: [place] [address] PATHOLOGY RPT PROCEDURE Name: VERONICA ANTOINE Room: [address] [facility].#: [id number] Admission: 05/11/19 Date of : 47 Discharge: 05/24/19 Report #: [id number] Path Case #: [id number] Negative for EGFR Mutation. . Indication for Study: Metastatic Lung Adenocarcinoma . Specimen Site and Type: Paraffin-Embedded Tissue-Liver . Nucleotide Change: . Amino Acid Change: . Comments: No mutations were detected within the analyzed region of the EGFR gene in the sample provided for analysis. Less than 5% of non-small cell lung carcinoma patients without identifiable mutations are reported to be responsive to EGFR tyrosine kinase inhibitor therapies. Results should be interpreted in conjunction with clinical and other laboratory findings for the most accurate interpretation. . A subgroup of non-small cell lung cancer (NSCLC) patients has shown clinical responsiveness to the epidermal growth factor receptor (EGFR) inhibitors gefitinib (IRESSA) and erlotinib (Tarceva), including never smokers, individuals of ethnicity, and those with adenocarcinoma histology. In the majority of patients with highly responsive tumors, the tumor contains a somatic mutation within the EGFR tyrosine kinase domain. The presence of a somatic EGFR mutation is significantly associated with response to gefitinib and erlotinib, and is strongly predictive of prolonged survival in NSCLC patients. . T790M mutation had been tested but was not detected in this submitted specimen. . This assay is able to detect 5% mutation in a background of wild-type DNA. . See report [id number] for further information. See FISH report [id number] for further information. See report [id number] for further information. See report [id number] for further information. . at [employer]. Jovon Malin, Ph.D., CODY DABMG, DABCC, DLMcm, M([facility])cm, DANIEL([facility])cm . Methodology: Genomic DNA was isolated from the provided tumor specimen. Exons 18 through 21 of the EGFR gene were subjected to SNaPShot multiplex PCR and primer extension for mutation detection. . Table: This Assay Can Detect the Following Mutations EGFR EGFR Codon Mutation Approximate % [place] [address] PATHOLOGY RPT PROCEDURE Name: VERONICA ANTOINE Room: [address] M.R.#: [id number] Admission: 05/11/19 Date of : 47 Discharge: 05/24/19 Report #: [id number] Path Case #: [id number] Exon Mutations 18 E709 E709K,E709Q 1% G719 G719S,G719C,G719A,G719D 2-5% 19 Insertions 18bp ins 1% Deletions 9,12,15,18,24 bp del 45% 20 Insertions 3,6,8,12 bp ins 5-10% S768 S768I 1-2% R776 R776C <1% T790 T790M 2% 21 L858 L858R 40% A859 A859T <1% L861 L861Q,L861R 2-5% * This Assay does not distinguish between the 18bp insertion and deletions at nucleotide position 2235 and 2237 . References: 1. Brian PA, Kimberly JA, Agustín BE. Epidermal Growth Factor Receptor Mutations in Zab-Ddsee-Lene Lung Cancer: Implications for Treatment and Tumor Biology. J. Clin. Oncol. 2005; 23:3415-9258. 2. Yelitza BERMAN et al. A Platform for Rapid Detection of Multiple Oncogenic Mutations with Relevance to Targeted Therapy in Crx-Cjeqs-Gxfg Lung Cancer. J. Mol. Diagn. 2011;13(1):74-84. . Disclaimer This Test was performed by [employer] [employer] at [address] [place] [address]. [facility] is a business unit of [employer] a wholly-owned subsidiary of [employer]. . . Any image(s) that accompany this report is/are a underwriting sales representative image(s) only and should not be used to render a diagnosis. . This test was developed and its performance characteristics determined by [employer] It has not been cleared or approved by the Food and Drug Administration. . A complete copy of the report is on file. . Professional services performed by [employer] at [address] [place] [address]. Technical services performed by [employer]. at [address] [place] [address]. . (SKM:castro 06/01/2019) . . AZJ/06/01/2019 [facility] [address] [place] [address] PATHOLOGY RPT PROCEDURE Name: VERONICA ANTOINE Room: [address] IN ..#: [id number] Admission: 05/11/19 Date of : 47 Discharge: 05/24/19 Report #: [id number] Path Case #: [id number] Addendum Electronically Signed by Pillo Cifuentes MD, Pathologist Addendum #4: Special studies report received from [facility], [address] [place] [address], [address], [place], [address], on case [id number], labeled with their number [id number], dated 06/01/2019. . BRAF Mutation Detection by PCR-SNAPSHOT Analysis . INTERPRETATION: Negative for a V600 BRAF mutation . Indication for Study: Metastatic Lung Adenocarcinoma . Specimen Type: Paraffin-Embedded Tissue-Liver . Comments: Somatic mutations in the BRAF oncogene are frequently found in human cancers, such as melanoma (approximately 40-60%), colorectal (approximately 5-15%), lung (approximately 1-3%), ovary (approximately 35%), thyroid carcinomas (approximately 45%) and hairy cell leukemia (approximately 100% in limited studies). Over 90% of the mutations are the V600E (1799T>A) mutation, but other V600 mutations have been reported. A negative result does not rule out the presence of other non-V600 mutations. Correlation with other clinical findings is needed for the most accurate interpretation. . This test detects multiple V600 mutations in BRAF, including V600E, V600K and other V600 variants. . See report [id number] for further information. See FISH report [id number] for further information. See report [id number] for further information. See Molecular report [id number] for further information. . Analytical Results: Assay Type Detection Parameters Result BRAF Gene Mutation Exon 15 V600 Negative . at [employer]. Jovon Malin, Ph.D., CODY DABMG, DABCC, DLMcm, M(ASCP)cm, DANIEL(ASCP)cm . Methodology: Genomic DNA was isolated from the provided specimen. Exon 15 of the BRAF gene was subjected to PCR and SNaPShot multiplex primer extension for mutation detection. This assay is able to detect 5% mutation in a background of [place] [address] PATHOLOGY RPT PROCEDURE Name: VERONICA ANTOINE Room: [facility].#: [id number] Admission: 05/11/19 Date of : 47 Discharge: 05/24/19 Report #: [id number] Path Case #: [id number] Intended Use: The detection of a BRAF V600 gene mutation aids in the specific diagnosis of certain cancers, such as hairy cell leukemia, and help to identify patients with worse prognosis and who may be responsive to certain therapies in a variety of cancers. . References: Bethanie Pack al. (2014) Integrating molecular biomarkers into current clinical management in melanoma. Methods Mol. Biol. . . Albert Holland et al. (2014) Resistance to anti-EGFR therapy in colorectal cancer: from heterogeneity to convergent evolution. Cancer Disco. 4:1-12. . NCCN Clinical Practice Guidelines in OncologyTM for Colon Cancer v.2 2015. . NCCN Clinical Practice Guidelines in OncologyTM for Hairy Cell Leukemia. v.4 2014. . NCCN Clinical Practice Guidelines in OncologyTM for Rectal Cancer v.2 2015. . NCCN Clinical Practice Guidelines in OncologyTM for Thyroid Carcinoma. v.2 2014. . NCCN Clinical Practice Guidelines in OncologyTM for Non-Small Cell Lung Cancer. v.1 2014. . Arlene Sena et al. (2012) Lung cancers with acquired resistance to EGFR inhibitors occasionally harbor BRAF gene mutations but lack mutations in KRAS, NRAS, or MEK1. Proc. Natl. Acad. Sci. USA. 109:O6401-G6526. . Harry S. et al. (2013) Clinicopathological relevance of BRAF mutations in human cancer. Pathology 45: 346-356. . Radha Mac. and Jolanta Bee. (2010) BRAF mutation testing in colorectal cancer. Arch. Pathol. Lab. Med. 537-4576-7261. . Disclaimer This Test was performed by [employer] [employer] at [facility] [address], [facility]. [facility] is a business unit of [employer] a wholly-owned subsidiary of [employer]. . This test was developed and its performance characteristics determined by [employer]. It has not been cleared or approved by the Food and Drug Administration. . A complete copy of [place] [address] PATHOLOGY RPT PROCEDURE Name: VERONICA ANTOINE Room: [address] DIS IN M.R.#: [id number] Admission: 05/11/19 Date of : 47 Discharge: 05/24/19 Report #: [id number] Path Case #: [id number] . Professional services performed by [employer] at [address], [place] [address]. Technical services performed by [employer] at [address], [place] [address]. . (SKM:marcy 06/01/2019) . [facility]/06/01/2019 Addendum Electronically Signed by Pillo Cifuentes MD, Pathologist . 02 Electronically signed: . Pillo Cifuentes MD, Pathologist NPI- [id number] . 01 Gross description: . The specimen is received in formalin, labeled "Veronica Antoine, liver mass", are three aly needle cores measuring 1.8 cm, 1.6 cm and 1.5 cm in length and with an average 0.1 cm diameter. The specimen is entirely submitted in A1. ([facility]; 05/19/2019) [facility] 05/24/2019 09 Local . 02 Pathologist provided ICD-10: C78.7 . 02 CPT . 821294, Z42302, Y16736 Specimen Comment: A courtesy copy of this report has been sent to Specimen Comment: [phone], , . Specimen Comment: Report sent to ,DR HAWK / DR TALAVERA Performed at: [address], [place], [place] [id number] MD Kelvin Fonseca MD Phone: [phone] Performed at: [address], [place], [place] [id number] MD Baldo Payan MD Phone: [phone]
== END 2019-05-24 22:09 | DRG 853 ==
LOC: M.ERS 09:18 → M.TBA-ER 11:06 → M.2W 11:06
PROVIDERS: Emergency Medicine; Family Medicine; Internal Medicine; Radiology Vascular & Interventional Radiology; ADMIT Internal Medicine
PROC: 30233R1 Transfusion of Nonautologous Platelets into Peripheral Vein, Percutaneous Approach (ICD-10-PCS; principal; 2019-05-12)
PROC: 30233K1 Transfusion of Nonautologous Frozen Plasma into Peripheral Vein, Percutaneous Approach (ICD-10-PCS; 2019-05-18)
PROC: B5181ZA Fluoroscopy of Superior Vena Cava using Low Osmolar Contrast, Guidance (ICD-10-PCS; 2019-05-19)
PROC: 0FB13ZX Excision of Right Lobe Liver, Percutaneous Approach, Diagnostic (ICD-10-PCS; 2019-05-19)
PROC: 06H03DZ Insertion of Intraluminal Device into Inferior Vena Cava, Percutaneous Approach (ICD-10-PCS; 2019-05-19)
PROC: 02HV33Z Insertion of Infusion Device into Superior Vena Cava, Percutaneous Approach (ICD-10-PCS; 2019-05-19)
PROC: B5191ZZ Fluoroscopy of Inferior Vena Cava using Low Osmolar Contrast (ICD-10-PCS; 2019-05-19)
PROC: 0JH63XZ Insertion of Tunneled Vascular Access Device into Chest Subcutaneous Tissue and Fascia, Percutaneous Approach (ICD-10-PCS; 2019-05-19)
PROC: B548ZZA Ultrasonography of Superior Vena Cava, Guidance (ICD-10-PCS; 2019-05-19)
DX: A41.9 Sepsis, unspecified organism (principal); G93.41 Metabolic encephalopathy; E43 Unspecified severe protein-calorie malnutrition; I82.442 Acute embolism and thrombosis of left tibial vein; N39.0 Urinary tract infection, site not specified; C34.90 Malignant neoplasm of unspecified part of unspecified bronchus or lung; C78.7 Secondary malignant neoplasm of liver and intrahepatic bile duct; C79.31 Secondary malignant neoplasm of brain; E87.0 Hyperosmolality and hypernatremia; I82.412 Acute embolism and thrombosis of left femoral vein; I82.432 Acute embolism and thrombosis of left popliteal vein; D68.59 Other primary thrombophilia; Z66 Do not resuscitate; Z96.641 Presence of right artificial hip joint; I10 Essential (primary) hypertension; E78.5 Hyperlipidemia, unspecified; F17.210 Nicotine dependence, cigarettes, uncomplicated; E86.0 Dehydration; K59.00 Constipation, unspecified; I48.0 Paroxysmal atrial fibrillation; K72.90 Hepatic failure, unspecified without coma; I25.10 Atherosclerotic heart disease of native coronary artery without angina pectoris; R33.8 Other retention of urine; I25.5 Ischemic cardiomyopathy; R33.9 Retention of urine, unspecified; D69.6 Thrombocytopenia, unspecified; Z91.040 Latex allergy status; Z22.39 Carrier of other specified bacterial diseases; Z88.0 Allergy status to penicillin; Z91.048 Other nonmedicinal substance allergy status; Z90.710 Acquired absence of both cervix and uterus; Z90.49 Acquired absence of other specified parts of digestive tract; Z79.899 Other long term (current) drug therapy; Z95.5 Presence of coronary angioplasty implant and graft; Z95.1 Presence of aortocoronary bypass graft; Z68.26 Body mass index [BMI] 26.0-26.9, adult